=== PATIENT | male | born 1960 | race Caucasian/White ===

== ENCOUNTER 2017-02-05 10:31 | Emergency (ER) | payer OTHER ==
[2017-02-05] MEDS ORDERED: KETOROLAC 60 MG/2 ML VIAL IM STA (11:01)
[2017-02-05] MEDS ORDERED: KETOROLAC 60 MG/2 ML VIAL ONE (11:06)
--- NOTE | 2017-02-05 11:11 | ED Physician Documentation ---
History of Present Illness - Stated complaint Stated Complaint: LT FOOT PX - Chief complaint Chief Complaint: Ext Problem - Additonal information Additional information: hx from pt 56 male hx gout pain redness swelling to 2st MCP L foot otherwise well Review of Systems Constitutional: denies: Fever Cardiac: denies: Chest pain / pressure Respiratory: denies: Dyspnea Musculoskeletal: reports: Pain with weight bearing PD PAST MEDICAL HISTORY - Past Medical History Past Medical History: Yes Cardiovascular: Hypertension GI: GERD Musculoskeletal: Osteoarthritis - Past Surgical History Past Surgical History: Yes General: Appendectomy - Present Medications Home Medications: Ambulatory Orders Medication Instructions Recorded Confirmed Allopurinol 100 mg PO DAILY #14 tablet 02/05/17 Esomeprazole Magnesium [Nexium] 5 mg PO DAILY 02/05/17 02/05/17 Indomethacin [Indocin] 25 mg PO TIDWM PRN #30 capsule 02/05/17 - Allergies Allergies/Adverse Reactions: Allergies Allergy/AdvReac Type Severity Reaction Status Date / Time Sulfa (Sulfonamide Allergy Hives Verified 05/23/14 13:27 Antibiotics) venom-wasp [Wasp Venom] Allergy swelling Verified 05/23/14 13:27 - Social History Does the pt smoke?: No Smoking Status: Never smoker Does the pt drink ETOH?: No Does the pt have substance abuse?: No - Immunizations Immunizations are current?: No Immunizations: TDAP >10years/unknown PD ED PE NORMAL - Vitals Vital signs reviewed: Yes - Cardiac Cardiac: RRR - Respiratory Respiratory: No respiratory distress, Clear bilaterally - Extremities Extremities: Other (L foot erthema and swellign primarily around 1st MCP with some extension across other MCPs but no proximal streaking, MSV intact, no open wounds) Results - Vitals Vitals: Vital Signs - 24 hr 02/05/17 10:34 Temperature 36.7 C Heart Rate 88 Respiratory 18 Rate Blood Pressure 153/93 H O2 Saturation 100 Oxygen O2 Source Room air - Labs Labs: Laboratory Tests 02/05/17 11:30 Sodium 137 Potassium 4.0 Chloride 102 Carbon Dioxide 27 Anion Gap 8.0 BUN 19 Creatinine 1.3 H Estimated GFR (MDRD) 57 L Glucose 99 Uric Acid 7.3 H Calcium 9.7 Total Bilirubin 1.0 AST 21 ALT 26 Alkaline Phosphatase 69 Total Protein 8.1 Albumin 4.3 Globulin 3.8 Albumin/Globulin Ratio 1.1 Lipase 28 Departure - Departure Disposition: 01 Home, Self Care Clinical Impression: Gout attack Qualifiers: Gout site: foot Gout etiology: unspecified cause Laterality: left Qualified Code(s): M10.9 - Gout, unspecified Condition: Good Instructions: ED Arthritis Gout Follow-Up: Helio Cole MD [Primary Care Provider] - Prescriptions: Allopurinol 100 mg PO DAILY #14 tablet Indomethacin [Indocin] 25 mg PO TIDWM PRN #30 capsule PRN Reason: take with food Comments: Please follow up with your PMD about your blood pressure - it was high today Your uric acid level is high as expected with gout Your kidney function is the same as 2015 - the creatinine is slightly high at 1.3 - so it is important to be careful about what medications you take to be sure the kidney function does not worsen - I wrote for a low dose of indocin for the gout pain and you should stop that as soon as the pain subsides - and I also wrote for a low dose of allopurinol which decreases your uric acid - you need to see your PMD in about 2 weeks to get your kidney function rechecked and determine if it is safe for you to continue the allopurinol
[2017-02-05 11:54] LABS: ALBUMIN/GLOBULIN RATIO 1.1 (1.0-2.2); CALCIUM 9.7 mg/dL (8.5-10.3); CREATININE 1.3 mg/dL (0.6-1.2); TOTAL PROTEIN 8.1 g/dL (6.7-8.2); URIC ACID 7.3 mg/dL (2.6-7.2)
[2017-02-05 13:00] VITALS: BP 128/78
== END 2017-02-05 12:59 | disposition home or self-care (01) ==
LOC: ED 10:31
DX: M10.9 Gout, unspecified (principal); I10 Essential (primary) hypertension; K21.9 Gastro-esophageal reflux disease without esophagitis; M19.90 Unspecified osteoarthritis, unspecified site
CPT/HCPCS: 36415; 80053; 83690; 84550; 96372; 99283

== ENCOUNTER 2018-09-27 16:02 | Emergency (ER) | payer OTHER ==
[2018-09-27] MEDS ORDERED: NAPROXEN 250 MG TABLET PO STA (17:15)
[2018-09-27] MEDS ORDERED: predniSONE 20 MG TABLET PO STA (17:15)
--- NOTE | 2018-09-27 17:18 | ED Physician Documentation ---
PD HPI LOWER EXT INJURY - Stated complaint Stated Complaint: LEFT FOOT PX - Chief complaint Chief Complaint: Ext Problem - History obtained from History obtained from: Patient - History of Present Illness PD HPI LOW EXT INJURY LOCATION: Right, Toe Timing - onset: How many days ago (1) Timing - details: Gradual onset Severity Comments: moderate Improved by: Rest Worsened by: Moving, Palpating Associated symptoms: Swelling Contributing factors: No: Anticoagulated Similar symptoms before: Other (Pain that the patient is experiencing in his right great toe is similar to prior episodes of gout.) Recently seen: Not recently seen Review of Systems Constitutional: denies: Fever, Chills Nose: denies: Congestion Cardiac: denies: Chest pain / pressure Respiratory: denies: Cough Skin: denies: Rash, Laceration (s) Musculoskeletal: reports: Extremity pain, Joint pain Neurologic: denies: Generalized weakness, Numbness PD PAST MEDICAL HISTORY - Past Medical History Past Medical History: Yes Cardiovascular: Hypertension Respiratory: None Neuro: None Endocrine/Autoimmune: None GI: GERD : None HEENT: None Psych: None Musculoskeletal: Osteoarthritis, Gout Derm: None - Past Surgical History Past Surgical History: Yes General: Appendectomy - Present Medications Home Medications: Ambulatory Orders Medication Instructions Recorded Confirmed Naproxen 500 mg PO BID PRN #60 tablet 09/27/18 predniSONE [Prednisone] 60 mg PO DAILY #12 tablet 09/27/18 - Allergies Allergies/Adverse Reactions: Allergies Allergy/AdvReac Type Severity Reaction Status Date / Time Sulfa (Sulfonamide Allergy Hives Verified 05/23/14 13:27 Antibiotics) venom-wasp [Wasp Venom] Allergy swelling Verified 09/27/18 16:22 - Social History Does the pt smoke?: No Smoking Status: Never smoker Does the pt drink ETOH?: No Does the pt have substance abuse?: No - Immunizations Immunizations are current?: Yes Immunizations: TDAP current <10years - POLST Patient has POLST: No PD ED PE NORMAL - General General: Alert and oriented X 3, No acute distress - HEENT HEENT: Atraumatic, PERRL, EOMI, Ears normal - Neuro Neuro: Alert and oriented X 3, Normal speech - Psych Psych: Normal affect PD ED PE EXPANDED - Extremities Feet visual: 1 - swelling, tenderness (The patient has some slight tenderness and erythematous changes. The patient has full active range of motion of the joints. There is no crepitus. There is a normal dorsalis pedis pulse.) Results - Vitals Vitals: Vital Signs - 24 hr 09/27/18 16:21 Temperature 36.4 C L Heart Rate 82 Respiratory 20 Rate Blood Pressure 169/121 H O2 Saturation 97 Oxygen O2 Source Room air PD MEDICAL DECISION MAKING - ED course ED course: The patient's symptoms are consistent with his prior episodes of gout, there is no significant findings that would suggest a septic arthritis at this point. The patient will be treated as an outpatient for a gout flareup. I discussed warning signs and recommended returning to the emergency department for any worsening or any concerns. Departure - Departure Disposition: Home, Self Care Clinical Impression: Great toe pain Qualifiers: Laterality: unspecified laterality Qualified Code(s): M79.676 - Pain in unspecified toe(s) Condition: Good Instructions: Gout Attack Tx, ED Arthritis Gout Follow-Up: [facility] [Provider Group] - As Needed (Call to schedule an a ppointment ) Prescriptions: Naproxen 500 mg PO BID PRN #60 tablet PRN Reason: Pain predniSONE [Prednisone] 60 mg PO DAILY #12 tablet Comments: Please return to the emergency department for worsening symptoms or any concerns Forms: Activity restrictions
[2018-09-27 17:20] VITALS: BP 155/109
== END 2018-09-27 17:24 | disposition home or self-care (01) ==
LOC: ED 16:02
DX: M79.674 Pain in right toe(s) (principal); M10.9 Gout, unspecified; I10 Essential (primary) hypertension
CPT/HCPCS: 99283; J7512

== ENCOUNTER 2019-01-15 09:46 | Outpatient (CLI) | payer OTHER ==
[2019-01-15 13:06] LABS: BASOPHILS % (AUTO) 0.8 %; EOSINOPHILS # (AUTO) 0.1 10^3/uL (0.0-0.7); EOSINOPHILS % (AUTO) 1.8 %; HGB - HEMOGLOBIN 13.6 g/dL (14.0-18.0); LYMPHOCYTES # (AUTO) 1.6 10^3/uL (1.5-3.5); LYMPHOCYTES % (AUTO) 28.1 %; MEAN CORPUSCULAR HEMOGLOBIN 29.6 pg (27.0-31.0); MEAN CORPUSCULAR HGB CONC 33.5 g/dL (32.0-36.0); MEAN CORPUSCULAR VOLUME 88.5 fL (80.0-94.0); MEAN PLATELET VOLUME 9.6 fL (7.4-11.4); MONOCYTES # (AUTO) 0.4 10^3/uL (0.0-1.0); MONOCYTES % (AUTO) 7.7 %; NEUTROPHILS # (AUTO) 3.6 10^3/uL (1.5-6.6); NEUTROPHILS % (AUTO) 61.6 %; PLT - PLATELET COUNT 240 10^3/uL (130-450); RED BLOOD COUNT 4.59 10^6/uL (4.70-6.10); RED CELL DISTRIBUTION WIDTH 13.8 % (12.0-15.0); WHITE BLOOD COUNT 5.8 x10^3/uL (4.8-10.8)
[2019-01-15 13:24] LABS: HB2 TOTAL 14.2 g/dL; HEMOGLOBIN A1C 0.52 g/dL; HEMOGLOBIN A1C % 5.5 % (4.6-6.2)
[2019-01-15 13:44] LABS: ALBUMIN 4.1 g/dL (3.2-5.5); ALBUMIN/GLOBULIN RATIO 1.2 (1.0-2.2); ALKALINE PHOSPHATASE 54 IU/L (42-121); ALT ALANINE AMINOTRANSFERASE 34 IU/L (10-60); AST ASPARTATE AMINOTRANSFERASE 31 IU/L (10-42); BILIRUBIN,TOTAL 0.8 mg/dL (0.2-1.0); BUN - BLOOD UREA NITROGEN 23 mg/dL (6-20); CALCIUM 9.4 mg/dL (8.5-10.3); CARBON DIOXIDE - CO2 24 mmol/L (21-32); CHLORIDE 106 mmol/L (101-111); CHOL/HDL RATIO 3.5 (<5.0); CHOLESTEROL 212 mg/dL; CREATININE 1.3 mg/dL (0.6-1.2); GFR - MDRD 57 (>89); GLUCOSE 91 mg/dL (70-100); HDL CHOLESTEROL 61 mg/dL; LDL CHOLESTEROL,CALCULATED 141 mg/dL; LDL/HDL RATIO 2.3 (<3.6); SODIUM 137 mmol/L (135-145); TOTAL PROTEIN 7.6 g/dL (6.7-8.2); URIC ACID 7.8 mg/dL (2.6-7.2); VLDL CHOLESTEROL 10 mg/dL
== END 2019-01-15 09:47 | disposition home or self-care (01) ==
LOC: LAB.WCP 09:46
PROVIDERS: ATTEND Physician Assistant
DX: I10 Essential (primary) hypertension (principal); E78.9 Disorder of lipoprotein metabolism, unspecified; Z00.00 Encounter for general adult medical examination without abnormal findings; Z12.5 Encounter for screening for malignant neoplasm of prostate; M10.9 Gout, unspecified
CPT/HCPCS: 36415; 80050; 80061; 83036; 83721; 84153; 84550

== ENCOUNTER 2020-08-22 12:38 | Outpatient (CLI) | payer OTHER ==
--- NOTE | 2020-08-22 15:20 | XRAY Report ---
PROCEDURE: Chest 2 View X-Ray INDICATIONS: COVID-19, ACUTE BRONCHITIS TECHNIQUE: 2 view(s) of the chest. COMPARISON: None. FINDINGS: Surgical changes and devices: None. Lungs and pleura: No pleural effusions or pneumothorax. Lungs are clear. Mediastinum: Mediastinal contours are normal. Heart size is normal. Bones and chest wall: No suspicious bony abnormalities. Soft tissues appear unremarkable. IMPRESSION: No acute cardiopulmonary process demonstrated radiographically. Reviewed by: Jose Mcknight MD on 08/22/2020 2:19 PM [facility] Approved by: Jose Mcknight MD on 08/22/2020 2:19 PM [facility] Station ID: [id number]
== END 2020-08-22 23:59 | disposition home or self-care (01) ==
LOC: DI.N 12:38
PROVIDERS: ATTEND Physician Assistant Medical
DX: U07.1 COVID-19 (principal)

== ENCOUNTER 2020-10-19 08:00 | Outpatient (CLI) | payer OTHER ==
[2020-10-19 18:22] LABS: BASOPHILS % (AUTO) 0.2 %; EOSINOPHILS # (AUTO) 0.2 10^3/uL (0.0-0.7); HGB - HEMOGLOBIN 13.9 g/dL (14.0-18.0); LYMPHOCYTES # (AUTO) 1.5 10^3/uL (1.5-3.5); LYMPHOCYTES % (AUTO) 28.2 %; MEAN CORPUSCULAR HEMOGLOBIN 29.5 pg (27.0-31.0); MEAN CORPUSCULAR HGB CONC 32.5 g/dL (32.0-36.0); MEAN CORPUSCULAR VOLUME 90.9 fL (80.0-94.0); MONOCYTES # (AUTO) 0.5 10^3/uL (0.0-1.0); NEUTROPHILS # (AUTO) 3.2 10^3/uL (1.5-6.6); NEUTROPHILS % (AUTO) 58.6 %; PLT - PLATELET COUNT 260 10^3/uL (130-450); RED BLOOD COUNT 4.71 10^6/uL (4.70-6.10); RED CELL DISTRIBUTION WIDTH 13.9 % (12.0-15.0); WHITE BLOOD COUNT 5.4 x10^3/uL (4.8-10.8)
[2020-10-19 18:35] LABS: ALKALINE PHOSPHATASE 75 IU/L (42-121); ALT ALANINE AMINOTRANSFERASE 28 IU/L (10-60); CALCIUM 9.3 mg/dL (8.5-10.3); CARBON DIOXIDE - CO2 26 mmol/L (21-32); CHLORIDE 102 mmol/L (101-111); CHOLESTEROL 223 mg/dL; GLUCOSE 102 mg/dL (70-100)
[2020-10-19 19:00] LABS: FOLATE 23.97 ng/mL (5.90 - >24.8)
[2020-10-19 19:54] LABS: % IRON SATURATION 33 % (20-50); ALBUMIN 4.5 g/dL (3.2-5.5); ALBUMIN/GLOBULIN RATIO 1.3 (1.0-2.2); AST ASPARTATE AMINOTRANSFERASE 24 IU/L (10-42); BILIRUBIN,TOTAL 0.9 mg/dL (0.2-1.0); BUN - BLOOD UREA NITROGEN 20 mg/dL (6-20); CHOL/HDL RATIO 4.4 (<5.0); CREATININE 1.4 mg/dL (0.6-1.2); HDL CHOLESTEROL 51 mg/dL; IRON 108 ug/dL (45-182); LDL CHOLESTEROL,CALCULATED 153 mg/dL; TOTAL IRON BINDING CAPACITY 332 ug/dL (250-450); TOTAL PROTEIN 8.1 g/dL (6.7-8.2); TRANSFERRIN 237 mg/dL (180-329); VLDL CHOLESTEROL 19 mg/dL
== END 2020-10-19 23:59 | disposition home or self-care (01) ==
LOC: LAB.WCP 08:00
PROVIDERS: ATTEND Physician Assistant Medical
DX: I10 Essential (primary) hypertension (principal); D64.9 Anemia, unspecified; Z12.5 Encounter for screening for malignant neoplasm of prostate; E78.5 Hyperlipidemia, unspecified
CPT/HCPCS: 36415; 80050; 80061; 82607; 82728; 82746; 83540; 83721; 84153; 84466

== ENCOUNTER 2021-06-19 12:20 | Outpatient (CLI) | payer OTHER | END 2021-06-19 23:59 | LOC: LAB.N 12:20 | PROVIDERS: ATTEND Family Medicine | DX: R05.9 Cough, unspecified (principal); Z20.822 Contact with and (suspected) exposure to COVID-19 ==

== ENCOUNTER 2023-05-06 08:45 | Outpatient (CLI) | payer BC, OTHER ==
[2023-05-06 12:59] LABS: BASOPHILS % (AUTO) 0.2 %; EOSINOPHILS # (AUTO) 0.2 10^3/uL (0.0-0.7); EOSINOPHILS % (AUTO) 2.8 %; HCT - HEMATOCRIT 43.5 % (42.0-52.0); LYMPHOCYTES # (AUTO) 1.3 10^3/uL (1.5-3.5); LYMPHOCYTES % (AUTO) 24.4 %; MEAN CORPUSCULAR HEMOGLOBIN 28.7 pg (27.0-31.0); MEAN CORPUSCULAR HGB CONC 32.2 g/dL (32.0-36.0); MEAN CORPUSCULAR VOLUME 89.1 fL (80.0-94.0); MEAN PLATELET VOLUME 11.6 fL (7.4-11.4); MONOCYTES # (AUTO) 0.5 10^3/uL (0.0-1.0); MONOCYTES % (AUTO) 8.5 %; NEUTROPHILS # (AUTO) 3.5 10^3/uL (1.5-6.6); NEUTROPHILS % (AUTO) 63.7 %; PLT - PLATELET COUNT 274 10^3/uL (130-450); RED BLOOD COUNT 4.88 10^6/uL (4.70-6.10); RED CELL DISTRIBUTION WIDTH 13.8 % (12.0-15.0); WHITE BLOOD COUNT 5.4 x10^3/uL (4.8-10.8)
[2023-05-06 13:28] LABS: THYROID STIMULATING HORMONE 2.61 uIU/mL (0.34-5.60)
[2023-05-06 13:37] LABS: ALBUMIN 4.4 g/dL (3.2-5.5); ALBUMIN/GLOBULIN RATIO 1.3 (1.0-2.2); ALKALINE PHOSPHATASE 80 IU/L (42-121); ALT ALANINE AMINOTRANSFERASE 19 IU/L (10-60); AST ASPARTATE AMINOTRANSFERASE 16 IU/L (10-42); BILIRUBIN,TOTAL 0.6 mg/dL (0.2-1.0); BUN - BLOOD UREA NITROGEN 17 mg/dL (6-20); CALCIUM 9.7 mg/dL (8.5-10.3); CARBON DIOXIDE - CO2 28 mmol/L (21-32); CHLORIDE 107 mmol/L (101-111); CHOL/HDL RATIO 4.4 (<5.0); CHOLESTEROL 213 mg/dL; CREATININE 1.6 mg/dL (0.6-1.3); GFR - MDRD 44 (>89); GLUCOSE 100 mg/dL (74-104); HDL CHOLESTEROL 48 mg/dL; LDL CHOLESTEROL,CALCULATED 149 mg/dL; LDL/HDL RATIO 3.1 (<3.6); POTASSIUM 4.2 mmol/L (3.5-4.5); SODIUM 140 mmol/L (135-145); TOTAL PROTEIN 7.8 g/dL (6.4-8.9); TRIGLYCERIDES 81 mg/dL (48-352); VLDL CHOLESTEROL 16 mg/dL
== END 2023-05-06 08:46 | disposition home or self-care (01) ==
LOC: LAB.N 08:45
PROVIDERS: ATTEND Family Medicine
DX: E78.5 Hyperlipidemia, unspecified (principal); I10 Essential (primary) hypertension; Z12.5 Encounter for screening for malignant neoplasm of prostate
CPT/HCPCS: 36415; 80053; 80061; 83721; 84153; 84443; 85025

== ENCOUNTER 2024-04-13 10:24 | Observation (INO) | payer BC, OTHER ==
--- NOTE | 2024-04-13 11:03 | ED Physician Documentation ---
PD HPI CHEST PAIN - Stated complaint Stated Complaint: SOA WEAK - Chief complaint Chief Complaint: Resp - Additional information Additional information: 63-year-old male with history of hypertension, GERD, osteoarthritis, gout, left knee arthroplasty. Patient says February 17 of this year he had his left knee replaced he had his labs drawn prior to surgery and said that there was no significant acute abnormalities. Overall he says he has been recovering well from surgery he said that he started taking 81 mg of aspirin twice a day per recommendations of surgeons and has been able to participate in all PT and has been overall feeling well. Yesterday he started to notice significant weakness and dizziness after he was lifting something heavy to the point where he had a near syncopal episode. He went inside and checked his blood pressure and it was found to be 80/60 with a heart rate of 104. He continued to feel weak with generalized malaise today and decided to come to the emergency department for further evaluation. He said that he has been having dark bowel movements but he says he thinks that they are mostly brown no hematemesis no nausea or vomiting no abdominal pain. PD PAST MEDICAL HISTORY - Past Medical History Cardiovascular: Hypertension Respiratory: None Neuro: None Endocrine/Autoimmune: None GI: GERD : None HEENT: None Psych: None Musculoskeletal: Osteoarthritis, Gout Derm: None - Past Surgical History Past Surgical History: Yes General: Appendectomy Ortho: Knee replacement - Present Medications Home Medications: Ambulatory Orders Medication Instructions Recorded Confirmed Aspirin [Yodit] 162.5 mg PO DAILY 04/13/24 04/13/24 Ibuprofen 200 mg PO DAILY 04/13/24 04/13/24 Multivitamin,Therapeutic 1 each PO DAILY 04/13/24 04/13/24 [Thera-Tabs] amLODIPine [Norvasc] 1 tab PO HS 04/13/24 04/13/24 - Allergies Allergies/Adverse Reactions: Allergies Allergy/AdvReac Type Severity Reaction Status Date / Time Sulfa (Sulfonamide Allergy Hives Verified 04/13/24 10:30 Antibiotics) venom-wasp [Wasp Venom] Allergy swelling Verified 04/13/24 10:30 oxycodone AdvReac Emesis Verified 04/13/24 16:10 - Social History Does the pt smoke?: No Smoking Status: Never smoker Does the pt drink ETOH?: No Does the pt have substance abuse?: No - Immunizations Immunizations are current?: Yes Immunizations: TDAP current <10years - POLST Patient has POLST: No PD ED PE NORMAL - Vitals Vital signs reviewed: Yes - General General: Alert and oriented X 3, No acute distress, Well developed/nourished - HEENT HEENT: Atraumatic, PERRL - Cardiac Cardiac: RRR, No murmur, Strong equal pulses - Respiratory Respiratory: No respiratory distress, Clear bilaterally - Abdomen Abdomen: Normal bowel sounds, Soft, Non tender, No organomegaly - Derm Derm: Other (very pale) - Extremities Extremities: Other (left knee arthoplasty scar healing well) - Psych Psych: Normal mood, Normal affect Results - Vitals Vitals: Vital Signs - 24 hr 04/13/24 04/13/24 04/13/24 10:30 13:32 13:34 Temperature 36.8 C 37.2 C 37.2 C Heart Rate 100 Heart Rate [ 93 93 Monitoring electrodes] Respiratory 26 H 15 15 Rate Blood Pressure 148/62 H Blood Pressure 153/91 H 153/91 H [Left Brachial artery] O2 Saturation 100 100 100 04/13/24 04/13/24 04/13/24 13:50 14:25 15:12 Temperature 37.1 C 36.7 C Heart Rate 93 89 Heart Rate [ 88 Monitoring electrodes] Respiratory 18 18 23 Rate Blood Pressure 142/84 H 166/95 H Blood Pressure 142/82 H [Left Brachial artery] O2 Saturation 100 100 100 Oxygen O2 Source Room air - Labs Labs: Microbiology 04/13/24 11:55 Occult Blood - Final Stool Laboratory Tests 04/13/24 04/13/24 04/13/24 10:54 10:54 10:54 WBC 7.8 RBC 1.82 L Hgb 5.2 L* Hct 16.9 L* MCV 92.9 MCH 28.6 MCHC 30.8 L RDW 14.4 Plt Count 268 MPV 10.0 Neut # (Auto) 5.2 Lymph # (Auto) 1.8 [place] # (Auto) 0.7 Eos # (Auto) 0.1 Baso # (Auto) 0.0 Absolute Nucleated RBC 0.00 Nucleated RBC % 0.0 PT INR Sodium 139 Potassium 3.5 Chloride 108 Carbon Dioxide 24 Anion Gap 7.0 BUN 61 H Creatinine 1.6 H Estimated GFR (MDRD) 44 L Glucose 105 H Calcium 8.8 Total Bilirubin 0.2 AST 11 ALT 12 Alkaline Phosphatase 59 Troponin I High Sens 14.3 B-Natriuretic Peptide 26 Total Protein 5.9 L Albumin 3.6 Globulin 2.3 Albumin/Globulin Ratio 1.6 Lipase 24 Blood Type Blood Type Recheck Antibody Screen Crossmatch IS Only 04/13/24 04/13/24 04/13/24 11:01 12:05 12:06 WBC RBC Hgb Hct MCV MCH MCHC RDW Plt Count MPV Neut # (Auto) Lymph # (Auto) [place] # (Auto) Eos # (Auto) Baso # (Auto) Absolute Nucleated RBC Nucleated RBC % PT 14.5 H INR 1.4 H Sodium Potassium Chloride Carbon Dioxide Anion Gap BUN Creatinine Estimated GFR (MDRD) Glucose Calcium Total Bilirubin AST ALT Alkaline Phosphatase Troponin I High Sens B-Natriuretic Peptide Total Protein Albumin Globulin Albumin/Globulin Ratio Lipase Blood Type O POSITIVE Blood Type Recheck O POSITIVE Antibody Screen NEGATIVE Crossmatch IS Only See Detail - Rads (name of study) Chest x-ray Relevant Findings:: Final report received, EMP independent interpretation of test, Other (Limited single view chest x-ray with low lung volumes) Abdomen pelvis CT with Relevant Findings:: Final report received, EMP independent interpretation of test, Other (Left renal mass measuring 5.4 cm concerning for renal cell carcinoma no invasion of the renal vein no retroperitoneal adenopathy) PD Medical Decision Making - ED course ED course: 63-year-old male presents emergency department for profound and significant weakness. He said he had episode of hypotension at home here blood pressure has been systolic in the 130s to 140s heart rate has been in the 100s to high 90s. He did have a bowel movement here in the emergency department and it was very firm and it did appear to be quite dark almost black. He denies any abdominal pain but went ahead and pursued abdominal pelvis CT as he had a very low hemoglobin and hematocrit. Hemoglobin 5.2 hematocrit 16.9. His GFR was also found to be low at 44, creatinine slightly elevated at 1.6 and BUN significantly elevated at 61. Patient says he believes he does have chronic kidney disease but his last GFR was found to be in the high 50s so this is a significant drop. Patient was agreeable to receive 2 units of RBCs consent was complete. His stool for guaiac study was found to be positive and patient did have very dark black bowel movement. I spoke with Dr. Azar who has agreed to consult on the patient while they are admitted. They will decide as the patient's H&H is trended if he will need an inpatient colonoscopy endoscopy. Patient was informed of this renal mass. I spoke with Dr. Alvarado who graciously agrees to admit the patient for trending of hemoglobin and hematocrit and patient is agreeable to stay. Departure - Departure Disposition: ED Place in Observation Clinical Impression: Anemia, Kidney mass, Blood transfusion during current hospitalisation, Guaiac positive stools, GI bleed Discharge Date/Time: 04/13/24 16:25
[2024-04-13 11:06] LABS: BASOPHILS % (AUTO) 0.1 %; EOSINOPHILS # (AUTO) 0.1 10^3/uL (0.0-0.7); LYMPHOCYTES # (AUTO) 1.8 10^3/uL (1.5-3.5); LYMPHOCYTES % (AUTO) 22.8 %; MEAN CORPUSCULAR HEMOGLOBIN 28.6 pg (27.0-31.0); MEAN CORPUSCULAR HGB CONC 30.8 g/dL (32.0-36.0); MEAN CORPUSCULAR VOLUME 92.9 fL (80.0-94.0); MONOCYTES # (AUTO) 0.7 10^3/uL (0.0-1.0); MONOCYTES % (AUTO) 8.4 %; NEUTROPHILS # (AUTO) 5.2 10^3/uL (1.5-6.6); NEUTROPHILS % (AUTO) 67.3 %; PLT - PLATELET COUNT 268 10^3/uL (130-450); RED BLOOD COUNT 1.82 10^6/uL (4.70-6.10); RED CELL DISTRIBUTION WIDTH 14.4 % (12.0-15.0); WHITE BLOOD COUNT 7.8 x10^3/uL (4.8-10.8)
[2024-04-13 11:09] LABS: HCT - HEMATOCRIT 16.9 % (42.0-52.0); HGB - HEMOGLOBIN 5.2 g/dL (14.0-18.0)
[2024-04-13] MEDS ORDERED: iohexoL-300 100 ML VIAL ONE (11:24)
[2024-04-13 11:25] LABS: ALBUMIN 3.6 g/dL (3.2-5.5); ALBUMIN/GLOBULIN RATIO 1.6 (1.0-2.2); BILIRUBIN,TOTAL 0.2 mg/dL (0.2-1.0); CALCIUM 8.8 mg/dL (8.5-10.3); CREATININE 1.6 mg/dL (0.6-1.3); POTASSIUM 3.5 mmol/L (3.5-4.5); TOTAL PROTEIN 5.9 g/dL (6.4-8.9)
[2024-04-13 11:27] LABS: TROPONIN I HIGH SENSITIVITY 14.3 ng/L (2.3-19.7)
--- NOTE | 2024-04-13 11:51 | XRAY Report ---
PROCEDURE: Chest 1V INDICATIONS: Chest pain TECHNIQUE: One view of the chest was acquired. COMPARISON: 08/22/2020 FINDINGS: Surgical changes and devices: None. Lungs and pleura: No dense consolidation or pleural effusion. Low lung volumes. Mediastinum: Unchanged cardiac mediastinal contours. The right hilum is prominent, likely present on prior imaging as well, indeterminate however on radiography Bones and chest wall: Degenerative changes IMPRESSION: Limited single view portable study with low lung volumes. No acute abnormality/changes. Similar prominence of the right hilum, indeterminate on radiography. Reviewed by: Rigoberto Soto MD on 04/13/2024 11:50 AM PDT Approved by: Rigoberto Soto MD on 04/13/2024 11:50 AM PDT Station ID: [id number]
--- NOTE | 2024-04-13 13:10 | CT Report ---
PROCEDURE: Abdomen/Pelvis W INDICATIONS: weakness, low H/H, dark BMs CONTRAST: Omni 300 100ml TECHNIQUE: After the administration of intravenous contrast, a CT scan of the abdomen and pelvis was performed. Images were recorded and evaluated at appropriate window settings. Reformats: coronal and sagittal. F or radiation dose reduction, the following was used: automated exposure control, adjustment of mA and /or kV according to patient size. COMPARISON: None. FINDINGS: Image quality: Diagnostic. Lower chest: Unremarkable. Liver: No solid mass. Gallbladder: No radiopaque stones or wall thickening. Biliary tree: No intrahepatic or extrahepatic dilation, accounting for age. Spleen: No splenomegaly. Pancreas: No pancreatic ductal dilation. Adrenals: No adrenal nodule. Kidneys and ureters: No hydronephrosis. No renal cystic lesion which requires follow up. Partially ex ophytic solid mass with central necrosis along the lateral margin of the left kidney measuring 5.4 x 4.9 x 4.4 cm. Renal vein is widely patent. No retroperitoneal adenopathy. Stomach, bowel and peritoneum: No gastric or small bowel dilation. No abnormal wall thickening. No pa thologic free fluid. No significant diverticular disease. No obstructing mass. Lymph nodes: No central or retroperitoneal adenopathy. Vessels: Infrarenal aortic aneurysm measuring 4.2 cm. Patent portal vein. PELVIS Reproductive organs: Unremarkable. Bladder: No abnormal wall thickening, accounting for underdistention. Pelvic lymph nodes: No pelvic adenopathy by size criteria. Bones: No aggressive osseous abnormality. Degenerative changes of the spine. Other: No significant ventral or inguinal hernia. IMPRESSION: No findings to explain the patient's anemia or dark bowel movements. Consider diagnostic colonoscopy given the symptoms. Left renal mass measuring 5.4 cm, concerning for renal cell carcinoma. No invasion of the renal vein. No retroperitoneal adenopathy. Reviewed by: Emile Fuentes MD on 04/13/2024 1:08 PM PDT Approved by: Emile Fuentes MD on 04/13/2024 1:08 PM PDT Station ID: [id number]
[2024-04-13] MEDS: iohexoL-300 100 ML VIAL IVP ONE (14:18)
[2024-04-13 14:55] LABS: INR 1.4 (0.8-1.2); PT - PROTHROMBIN TIME 14.5 secs (9.9-12.6)
[2024-04-13] MEDS ORDERED: oxyCODONE 5 MG TABLET PO PRN (15:21)
[2024-04-13] MEDS ORDERED: ONDANSETRON 4 MG/2 ML VIAL IVP PRN (15:21)
[2024-04-13] MEDS ORDERED: ONDANSETRON ODT 4 MG TABLET TL PRN (15:21)
[2024-04-13] MEDS ORDERED: ACETAMINOPHEN 325 MG TABLET PO PRN (15:21)
--- NOTE | 2024-04-13 15:24 | CONSULTATION NOTE ---
Referring Provider Name of Referring Provider:: ED (Roz) Consult Date: 04/13/24 Chief Complaint - Chief Complaint Chief Complaint: anemia and guiac positive stools History of Present Illness - Admitted From Admitted From:: ED - History Obtained From Records Reviewed: yes History obtained from: ED provider, patient, at bedside Exam Limitations: patient is poor historian - History of Present Illness HPI Comment/Other: Patient underwent left total knee replacement on 02/18/24, and now presents with two day history of fatigue and malaise. He felt weak and dizzy after heavy lifting yesterday. He is taking ibuprofen and BID aspirin. He did feel some h eartburn yesterday which he treated with baking soda and water. He is not on a PPI or H2 richar. He has a history of GERD and Yee's esophagus and reports prior ablation of his esophagus for Yee's. He reports his most recent endoscopy was in 2012 and that he was told he doesn't need further endoscopy. At the time of my visit, the patient denies any abdominal pain, n/v, c/d. He denies blood or melanotic stools but the ED provider reported hard, black stool at the time of rectal exam. History - Past Medical History Cardiovascular: reports: Hypertension Respiratory: reports: None Neuro: reports: None Endocrine/Autoimmune: reports: None GI: reports: GERD, Other (Yee's esophagus). denies: GI bleed, Ulcers : reports: None HEENT: reports: None Psych: reports: None Musculoskeletal: reports: Osteoarthritis, Gout Derm: reports: None MRSA Hx?: No - Past Surgical History General: reports: Appendectomy Ortho: reports: Knee replacement (L) - Family & Social History Living arrangement: At home Living Situation: With spouse/s.o. - POLST Patient has POLST: No Meds/Allgy - Home Medications Home Medications: Ambulatory Orders Medication Instructions Recorded Confirmed Aspirin [Kaylor Aspirin] 2 tab PO DAILY 04/13/24 04/13/24 Ibuprofen [Motrin] 1 tab PO DAILY 04/13/24 04/13/24 amLODIPine [Norvasc] 1 tab PO DAILY 04/13/24 04/13/24 - Allergies Allergies/Adverse Reactions: Allergies Allergy/AdvReac Type Severity Reaction Status Date / Time Sulfa (Sulfonamide Allergy Hives Verified 04/13/24 10:30 Antibiotics) venom-wasp [Wasp Venom] Allergy swelling Verified 04/13/24 10:30 oxycodone AdvReac Emesis Verified 04/13/24 16:10 Review of Systems - Constitutional Constitutional: reports: Other (A complete 10 point review of symptoms is otherwise negative except for that noted in HPI and PMH.) Exam - Vital Signs Vital Signs: Vital Signs x48h Temp Pulse Pulse Resp BP BP Pulse Ox 04/13/24 15:12 89 23 166/95 H 100 04/13/24 14:25 36.7 C 93 18 142/84 H 100 04/13/24 13:50 37.1 C 88 18 142/82 H 100 04/13/24 13:34 37.2 C 93 15 153/91 H 100 04/13/24 13:32 37.2 C 93 15 153/91 H 100 04/13/24 10:30 36.8 C 100 26 H 148/62 H 100 - Physical Exam Comments/Other: GEN: No acute distress, appears stated age, alert and oriented HEENT: NCAT, MMM, EOMI NEURO: CN II-XII grossly intact, no obvious focal deficits CV: RRR PULM: non labored, on RA ABD: soft, obese, non tender to superficial or deep palpation, no rebound or guarding CIRCULATORY: no clubbing, cyanosis, or edema SKIN: no lesions appreciated LYMPH: no obvious lymphadenopathy MSK: 4/4 strength in all extremities PSYCH: Affect is appropriate Conclusion and Plan - Lab Results Microbiology Results 04/13/24 11:55 Stool Occult Blood - Final Laboratory Results 04/13/24 12:06: Blood Type O POSITIVE, Antibody Screen NEGATIVE, Crossmatch IS Only See Detail 04/13/24 12:05: Blood Type Recheck O POSITIVE 04/13/24 11:01: PT 14.5 H, INR 1.4 H 04/13/24 10:54: B-Natriuretic Peptide 26 04/13/24 10:54: Sodium 139, Potassium 3.5, Chloride 108, Carbon Dioxide 24, Anion Gap 7.0, BUN 61 H, Creatinine 1.6 H, Estimated GFR (MDRD) 44 L, Glucose 105 H, Calcium 8.8, Total Bilirubin 0.2, AST 11, ALT 12, Alkaline Phosphatase 59, Troponin I High Sens 14.3, Total Protein 5.9 L, Albumin 3.6, Globulin 2.3, Albumin/Globulin Ratio 1.6, Lipase 24 04/13/24 10:54: WBC 7.8, RBC 1.82 L, Hgb 5.2 L*, Hct 16.9 L*, MCV 92.9, MCH 28.6, MCHC 30.8 L, RDW 14.4, Plt Count 268, MPV 10.0, Neut # (Auto) 5.2, Lymph # (Auto) 1.8, [place] # (Auto) 0.7, Eos # (Auto) 0.1, Baso # (Auto) 0.0, Absolute Nucleated RBC 0.00, Nucleated RBC % 0.0 - Diagnostic Imaging Results Diagnostic Imaging Results: positive: Final report reviewed, Read independently Diagnostic Imaging Results Comments: L renal mass. No significant wall thickening in stomach, colon, no significant diverticular disease. - Consultation Note Consultation Note: 63 y/o M with: Anemia, concern for GI bleed - guiac positive stool - on BID ASA and NSAIDS. Recommend holding both of these medications and starting a PPI at this time (PO or IV, no drip needed). Patient should be on a PPI with h/o Yee's esophagus. - agree with transfusion of 2 units pRBC's - At this time, as the patient is hemodynamically stable, I would like to observe for signs of continued bleeding. If his hgb stabilizes with above intervention, he can f/u for outpatient endoscopy. If not, upper endoscopy would be the first step as inpatient. - Recommend clear liquid (non red) diet at this time until Hgb is stable for 12 hours, then adat to regular. Renal mass - patient will need further workup, staging, referral to urology gout, htn - as per primary team I have discussed the patient with the primary medicine team. Surgery will continue to follow closely. Thank you for consulting me in the care of this patient!
[2024-04-13] MEDS: PANTOPRAZOLE 40 MG VIAL IV STA (16:05)
--- NOTE | 2024-04-13 16:51 | PHARMACY PROGRESS NOTE ---
- Best Possible Medication History Admit Date and Time: 04/13/24 1521 Processed by: Pharmacy Medications reviewed in ED?: No Medication History completed: Yes Patient Interview: Completed Secondary Source(s): Insurance records As the person ultimately responsible for medication therapy, providers are able to order a medication from an existing home medication list in [facility] via the "Reconcile Routine" prior to Confirmation of that medication by production support specialist. Such practice is discouraged except when the physician, in their clinical judgment, deems that a medical need exists for a medication without regard to previous use.
[2024-04-13] MEDS: amLODIPine 5 MG TABLET PO STA (16:52)
--- NOTE | 2024-04-13 17:26 | HISTORY & PHYSICAL EXAMINATION ---
Chief Complaint - Chief Complaint Chief Complaint: Weakness and dyspnea on exertion with dark stool History of Present Illness - Admitted From Admitted From:: ED - History Obtained From Records Reviewed: ED, History obtained from: Patient, ED records for current and previous visit, outpatient records - History of Present Illness HPI Comment/Other: 63-year-old male with history of hypertension, GERD, osteoarthritis, gout, left knee arthroplasty presented to the ED on 04/13/24. Patient says February 17 of this year he had his left knee replaced he had his labs drawn prior to surgery and said that there was no significant acute abnormalities. Overall he says he has been recovering well from surgery he said that he started taking 81 mg of aspirin twice a day per recommendations of surgeons and has been able to participate in all PT and has been overall feeling well. Yesterday he started to notice significant weakness and dizziness after he was lifting something heavy to the point where he had a near syncopal episode. He went inside and checked his blood pressure and it was found to be 80/60 with a heart rate of 104. He continued to feel weak with generalized malaise today and decided to come to the emergency department for further evaluation. He said that he has been having dark bowel movements with a "foul smell" but he says he thinks that they are mostly brown, no hematemesis, no nausea or vomiting, no abdominal pain. History - Past Medical History Cardiovascular: reports: Hypertension Respiratory: reports: None, Sleep apnea, CPAP use (Sleep apnea) Neuro: reports: None Endocrine/Autoimmune: reports: None GI: reports: GERD, Other (Yee's esophagus with ablation). denies: GI bleed, Ulcers : reports: None, Renal insuffiency HEENT: reports: None Psych: reports: None Musculoskeletal: reports: Osteoarthritis, Gout, Other (Spinal stenosis, Left ACL tear 09/21/23, Left knee replacement 02/18/24) Derm: reports: None MRSA Hx?: No - Past Surgical History General: reports: Appendectomy, EGD (Yee's esophagus with ablation 2012) Ortho: reports: Knee replacement (L knee 02/18/24) - Family & Social History Family History: Mother: (Dad at 82 and mother at 69), Father: , Other family: Alive and Well (siblings healthy) Living arrangement: At home Living Situation: With spouse/s.o., With family - Substance History Use: Uses substance without health or social issues: NONE - POLST Patient has POLST: No POLST Status: Full Code Meds/Allgy - Home Medications Home Medications: Ambulatory Orders Medication Instructions Recorded Confirmed Aspirin [Yodit] 162.5 mg PO DAILY 04/13/24 04/13/24 Ibuprofen 200 mg PO DAILY 04/13/24 04/13/24 Multivitamin,Therapeutic 1 each PO DAILY 04/13/24 04/13/24 [Thera-Tabs] amLODIPine [Norvasc] 1 tab PO HS 04/13/24 04/13/24 - Allergies Allergies/Adverse Reactions: Allergies Allergy/AdvReac Type Severity Reaction Status Date / Time Sulfa (Sulfonamide Allergy Hives Verified 04/13/24 10:30 Antibiotics) venom-wasp [Wasp Venom] Allergy swelling Verified 04/13/24 10:30 oxycodone AdvReac Emesis Verified 04/13/24 16:10 Review of Systems - Constitutional Constitutional: reports: Fatigue. denies: Fever, Chills - Eyes Eyes: denies: Pain, Blurred vision - Ears, Nose & Throat Ears, Nose & Throat: denies: Ear pain, Nasal congestion - Cardiovascular Cariovascular: reports: Edema (LLE), Lightheadedness, Exertional dyspnea, Decr. exercise tolerance. denies: Palpitations, Chest pain - Respiratory Respiratory: reports: SOB with exertion. denies: Cough, Wheezing, SOB at rest - Gastrointestinal Gastrointestinal: reports: Black stools, Reflux/heartburn. denies: Abdominal pain, Abdominal distention, Constipation, Diarrhea, Nausea, Vomiting, Coffee grounds emesis - Genitourinary Genitourinary: denies: Dysuria, Frequency - Musculoskeletal Musculoskeletal: reports: Limited range of motion (Left knee s/p knee repla cement), Other (Surgical scar left knee, edema of the lower extremity) - Integumentary Integumentary: denies: Rash, Lesions - Neurological Neurological: denies: Focal weakness, Headache, Memory problems, Seizures - Psychiatric Psychiatric: denies: Depression, Anxiety - Endocrine Endocrine: denies: Polyuria, Polydypsia, Polyphagia - Hematologic/Lymphatic Hematologic/Lymphatic: denies: Bruising, Petechiae Prior Level of Functionality: Independent. He works at the [employer], drives, and is active. He has been using a cane during the recovery from his left knee replacement and has been off work since the surgery. Exam - Vital Signs Reviewed Vital Signs: Yes Vital Signs: Vital Signs x48h Temp Pulse Pulse Resp BP BP Pulse Ox 04/13/24 16:12 37.2 C 75 18 171/92 H 100 04/13/24 16:00 37.1 C 95 20 176/91 H 100 04/13/24 15:12 89 23 166/95 H 100 04/13/24 14:25 36.7 C 93 18 142/84 H 100 04/13/24 13:50 37.1 C 88 18 142/82 H 100 04/13/24 13:34 37.2 C 93 15 153/91 H 100 04/13/24 13:32 37.2 C 93 15 153/91 H 100 04/13/24 10:30 36.8 C 100 26 H 148/62 H 100 - Physical Exam General Appearance: positive: No acute distress, Alert, Other (63 y/o male who is interactive and pleasant, appears pale) Eyes Bilateral: positive: PERRL, EOMI, No scleral icterus. negative: No lid inflammation, Conjunctivae nml (Conjunctival pallor) ENT: positive: No signs of dehydration Neck: positive: Nml inspection, No JVD, Trachea midline Respiratory: positive: Chest non-tender, No respiratory distress, Breath sounds nml. negative: Wheezes, Rales, Rhonchi Cardiovascular: positive: Regular rate & rhythm, No murmur, No gallop. negative: Tachycardia Peripheral Pulses: positive: 2+ Abdomen: positive: Non-tender, No organomegaly, Nml bowel sounds, No distention, Tenderness. negative: Guarding, Rebound Rectal: positive: Stool - heme POS (In the ED) Back: positive: Nml inspection Skin: positive: No rash, Warm, Dry, Pallor Extremities: positive: Pedal edema (Trace pitting edema LLE, compression socks bilateral lower extremities), Other (Surgical scar L knee with mild swelling, limbs otherwise normal) Neurologic/Psychiatric: positive: Oriented x3, CN's nml (2-12), Motor nml, Sensation nml, Mood/affect nml Sepsis Event Note (H) - Evaluation Current Stage of Sepsis: Ruled out Conclusion/Plan - Problem List (1) GI bleed Conclusion/Plan: Mr. Baron presents with a one day history of fatigue, dyspnea on exertion, and light-headness with dark "foul smelling" stool. He tore his left ACL in september and was taking 1-2 ibuprofen a day until early january when he stopped as he was told it is bad for his kidneys. He had a left total knee replacement on February 17 and was placed on 600 mg ibuprofen 3-4x/day for 2-3 weeks, which he decreased to 200mg 3-4x/day and then 1-2x/day up until his ED visit. He is also on ASA 81 mg BID for DVT prophylaxis. He was found to be anemic in the ED with a Hbg of 5.2 and his stool was guiac positive. He has pale conjuntiva and palms, no complaints of abdominal pain, n/v. He is hemodynamically stable and 2 units or PRBC were ordered in the ED and he was admitted to the floor. He is recieving his second unit of blood. He has been started on protonix and will hold his home ASA. We will monitor serial hemograms. If his Hbg is stable and he is hemodynamically stable, he will be discharged for outpatient follow-up. If his homoglobin is unstable, we will transfuse again if needed and prep him for EGD and colonoscopy. Reji has already consulted on the patient and will provide the referral for outpatient EGD/colonoscpy if needed. (2) Anemia Conclusion/Plan: Acute post-hemorrhagic anemia due to GI bleed as discussed above. He has had mild anemia in the past but was not anemic at his last visit in 2022 with a hbg of 14.0. Qualifiers: Other causes of anemia: acute posthemorrhagic (3) Hypertension Conclusion/Plan: Chronic HTN, on amlodipine 5 mg PO @ HS. I will continue his home medications and monitor his blood pressure during his admission. He is currently hemodynaically stable with a last BP of 171/91 Qualifiers: Hypertension type: primary hypertension Qualified Code(s): I10 - Essential (primary) hypertension (4) Kidney mass Conclusion/Plan: Left partially exophytic encapsulated mass with central necrosis renal mass measuring 5.4 cm along the lateral border concerning for carcinoma on abdominal CT. There is no invasion of renal vein and no retroperitoneal adenopathy. This has not been previously reported and he will need to follow-up with PCP and oncology referral after discharge. (5) Chronic renal insufficiency, stage III (moderate) Conclusion/Plan: Stage 3b CKD with a GFR of 44 and creatinine of 1.6 today, unchanged from his visit on 05/06/23. He has been advised to avoid additional NSAID use and will follow with his PCP. As his renal function is stable from 1 year ago, he does not have an PARRIS related to the GI bleed. He will continue to follow with his PCP in the outpatient setting. Qualifiers: Chronic kidney disease stage 3 subtype: stage 3b (GFR 30-44) Qualified Code(s): N18.32 - Chronic kidney disease, stage 3b (6) Sleep apnea Conclusion/Plan: Hx of sleep apnea, uses CPAP at night. He will need to use a CPAP machine from [facility] during his admission. His home CPAP mask has a leak. (7) GERD (gastroesophageal reflux disease) Conclusion/Plan: Hx of GERD with previous ablation of Yee's esophagus in 2012. He states the CPAP helps prevent reflux at night. He will be on protonix during his admission. - Lab Results Lab results reviewed: Yes Fish Bones: 04/13/24 10:54 04/13/24 10:54 Other Lab Results: Laboratory Results - last 24 hr 04/13/24 04/13/24 04/13/24 10:54 10:54 10:54 WBC 7.8 RBC 1.82 L Hgb 5.2 L* Hct 16.9 L* MCV 92.9 MCH 28.6 MCHC 30.8 L RDW 14.4 Plt Count 268 MPV 10.0 Neut # (Auto) 5.2 Lymph # (Auto) 1.8 Loup # (Auto) 0.7 Eos # (Auto) 0.1 Baso # (Auto) 0.0 Absolute Nucleated RBC 0.00 Nucleated RBC % 0.0 PT INR Sodium 139 Potassium 3.5 Chloride 108 Carbon Dioxide 24 Anion Gap 7.0 BUN 61 H Creatinine 1.6 H Estimated GFR (MDRD) 44 L Glucose 105 H Calcium 8.8 Total Bilirubin 0.2 AST 11 ALT 12 Alkaline Phosphatase 59 Troponin I High Sens 14.3 B-Natriuretic Peptide 26 Total Protein 5.9 L Albumin 3.6 Globulin 2.3 Albumin/Globulin Ratio 1.6 Lipase 24 Blood Type Blood Type Recheck Antibody Screen Crossmatch IS Only 08/05/24 08/05/24 08/05/24 11:01 12:05 12:06 WBC RBC Hgb Hct MCV MCH MCHC RDW Plt Count MPV Neut # (Auto) Lymph # (Auto) Loup # (Auto) Eos # (Auto) Baso # (Auto) Absolute Nucleated RBC Nucleated RBC % PT 14.5 H INR 1.4 H Sodium Potassium Chloride Carbon Dioxide Anion Gap BUN Creatinine Estimated GFR (MDRD) Glucose Calcium Total Bilirubin AST ALT Alkaline Phosphatase Troponin I High Sens B-Natriuretic Peptide Total Protein Albumin Globulin Albumin/Globulin Ratio Lipase Blood Type O POSITIVE Blood Type Recheck O POSITIVE Antibody Screen NEGATIVE Crossmatch IS Only See Detail - Diagnostic Imaging Results Diagnostic Imaging Results: positive: Final report reviewed Diagnostic Imaging Results Comments: CT abdomen: No findings to explain anemia and dark stool. Left renal mass measuring 5.4 cm concerning for renal carcinoma, no renal artery invasion, no retroperitoneal adenopathy CXR: No acute abnormalities - EKG Results EKG Interpreted Independently: Yes EKG Comparison: Old EKG unavailable EKG Findings: Sinus rhythm, normal axis, normal R wave progression, no ST-elevation Core Measures - Anticipated LOS I expect patient to be DC'd or transferred within 96 hours.: Yes - DVT/VTE - Prophylaxis VTE/DVT Device ordered at admit?: Yes VTE/DVT Prophylaxis med ordered at admit?: No Not Ordered - Medical Reason: Contraindicated
[2024-04-13] MEDS ORDERED: GI COCKTAIL 120 ML BOTTLE PO PRN (17:32)
[2024-04-13] MEDS: SODIUM CHLORIDE FLUSH 0.9% 10 ML SYRINGE IVP SCH (17:33)
[2024-04-13] MEDS: SODIUM CHLORIDE 0.9% 1,000 ML IV SCH (21:14)
[2024-04-13] MEDS: SODIUM CHLORIDE FLUSH 0.9% 10 ML SYRINGE IVP PRN (21:14)
[2024-04-14 01:13] LABS: HCT - HEMATOCRIT 24.6 % (42.0-52.0); HGB - HEMOGLOBIN 8.1 g/dL (14.0-18.0)
--- NOTE | 2024-04-14 06:59 | PROVIDER PROGRESS NOTE ---
Subjective - General Admit Date: 04/13/24 - Other Other Information/Narrative: Patient denies pain this AM. Tolerating clears, no n/v. No heartburn. He reports one med brown stool overnight. Objective - Patient Data Vital Signs: Vital Signs x48h Temp Pulse Pulse Resp BP Pulse Ox 04/14/24 05:30 88 04/14/24 01:30 89 04/13/24 23:35 36.8 C 82 18 144/89 H 99 Weight: Weight 04/12/24 04/13/24 04/14/24 23:59 23:59 23:59 Weight (kg) 140.614 kg Intake & Output: Intake and Output Totals x24h 04/12/24 04/13/24 04/14/24 23:59 23:59 23:59 Intake Total 620 Balance 620 - Lab Results Lab Results: 04/14/24 01:08 04/13/24 10:54 Other Lab Results: Lab Results x24hrs 04/14/24 04/13/24 04/13/24 Range/Units 01:08 12:06 12:05 WBC (4.8-10.8) x10^3/uL RBC (4.70-6.10) 10^6/uL Hgb 8.1 L (14.0-18.0) g/dL Hct 24.6 L (42.0-52.0) % MCV (80.0-94.0) fL MCH (27.0-31.0) pg MCHC (32.0-36.0) g/dL RDW (12.0-15.0) % Plt Count (130-450) 10^3/uL MPV (7.4-11.4) fL Neut # (Auto) (1.5-6.6) 10^3/uL Lymph # (Auto) (1.5-3.5) 10^3/uL Winn # (Auto) (0.0-1.0) 10^3/uL Eos # (Auto) (0.0-0.7) 10^3/uL Baso # (Auto) (0.0-0.1) 10^3/uL Absolute Nucleated RBC x10^3/uL Nucleated RBC % /100WBC PT (9.9-12.6) secs INR (0.8-1.2) Sodium (135-145) mmol/L Potassium (3.5-4.5) mmol/L Chloride (101-111) mmol/L Carbon Dioxide (21-32) mmol/L Anion Gap (6-13) BUN (6-20) mg/dL Creatinine (0.6-1.3) mg/dL Estimated GFR (MDRD) (>89) Glucose (74-104) mg/dL Calcium (8.5-10.3) mg/dL Total Bilirubin (0.2-1.0) mg/dL AST (10-42) IU/L ALT (10-60) IU/L Alkaline Phosphatase (42-121) IU/L Troponin I High Sens (2.3-19.7) ng/L B-Natriuretic Peptide (5-100) pg/mL Total Protein (6.4-8.9) g/dL Albumin (3.2-5.5) g/dL Globulin (2.1-4.2) g/dL Albumin/Globulin Ratio (1.0-2.2) Lipase (11-82) U/L Blood Type O POSITIVE Blood Type Recheck O POSITIVE Antibody Screen NEGATIVE Crossmatch IS Only See Detail 04/13/24 04/13/24 04/13/24 Range/Units 11:01 10:54 10:54 WBC (4.8-10.8) x10^3/uL RBC (4.70-6.10) 10^6/uL Hgb (14.0-18.0) g/dL Hct (42.0-52.0) % MCV (80.0-94.0) fL MCH (27.0-31.0) pg MCHC (32.0-36.0) g/dL RDW (12.0-15.0) % Plt Count (130-450) 10^3/uL MPV (7.4-11.4) fL Neut # (Auto) (1.5-6.6) 10^3/uL Lymph # (Auto) (1.5-3.5) 10^3/uL Winn # (Auto) (0.0-1.0) 10^3/uL Eos # (Auto) (0.0-0.7) 10^3/uL Baso # (Auto) (0.0-0.1) 10^3/uL Absolute Nucleated RBC x10^3/uL Nucleated RBC % /100WBC PT 14.5 H (9.9-12.6) secs INR 1.4 H (0.8-1.2) Sodium 139 (135-145) mmol/L Potassium 3.5 (3.5-4.5) mmol/L Chloride 108 (101-111) mmol/L Carbon Dioxide 24 (21-32) mmol/L Anion Gap 7.0 (6-13) BUN 61 H (6-20) mg/dL Creatinine 1.6 H (0.6-1.3) mg/dL Estimated GFR (MDRD) 44 L (>89) Glucose 105 H (74-104) mg/dL Calcium 8.8 (8.5-10.3) mg/dL Total Bilirubin 0.2 (0.2-1.0) mg/dL AST 11 (10-42) IU/L ALT 12 (10-60) IU/L Alkaline Phosphatase 59 (42-121) IU/L Troponin I High Sens 14.3 (2.3-19.7) ng/L B-Natriuretic Peptide 26 (5-100) pg/mL Total Protein 5.9 L (6.4-8.9) g/dL Albumin 3.6 (3.2-5.5) g/dL Globulin 2.3 (2.1-4.2) g/dL Albumin/Globulin Ratio 1.6 (1.0-2.2) Lipase 24 (11-82) U/L Blood Type Blood Type Recheck Antibody Screen Crossmatch IS Only 04/13/24 Range/Units 10:54 WBC 7.8 (4.8-10.8) x10^3/uL RBC 1.82 L (4.70-6.10) 10^6/uL Hgb 5.2 L* (14.0-18.0) g/dL Hct 16.9 L* (42.0-52.0) % MCV 92.9 (80.0-94.0) fL MCH 28.6 (27.0-31.0) pg MCHC 30.8 L (32.0-36.0) g/dL RDW 14.4 (12.0-15.0) % Plt Count 268 (130-450) 10^3/uL MPV 10.0 (7.4-11.4) fL Neut # (Auto) 5.2 (1.5-6.6) 10^3/uL Lymph # (Auto) 1.8 (1.5-3.5) 10^3/uL Winn # (Auto) 0.7 (0.0-1.0) 10^3/uL Eos # (Auto) 0.1 (0.0-0.7) 10^3/uL Baso # (Auto) 0.0 (0.0-0.1) 10^3/uL Absolute Nucleated RBC 0.00 x10^3/uL Nucleated RBC % 0.0 /100WBC PT (9.9-12.6) secs INR (0.8-1.2) Sodium (135-145) mmol/L Potassium (3.5-4.5) mmol/L Chloride (101-111) mmol/L Carbon Dioxide (21-32) mmol/L Anion Gap (6-13) BUN (6-20) mg/dL Creatinine (0.6-1.3) mg/dL Estimated GFR (MDRD) (>89) Glucose (74-104) mg/dL Calcium (8.5-10.3) mg/dL Total Bilirubin (0.2-1.0) mg/dL AST (10-42) IU/L ALT (10-60) IU/L Alkaline Phosphatase (42-121) IU/L Troponin I High Sens (2.3-19.7) ng/L B-Natriuretic Peptide (5-100) pg/mL Total Protein (6.4-8.9) g/dL Albumin (3.2-5.5) g/dL Globulin (2.1-4.2) g/dL Albumin/Globulin Ratio (1.0-2.2) Lipase (11-82) U/L Blood Type Blood Type Recheck Antibody Screen Crossmatch IS Only AM lab pending - Current Medications Current Medications: Current Medications Generic Name Dose Route Start Last Admin Trade Name Freq PRN Reason Stop Dose Admin Sodium Chloride 10 ml 04/13/24 15:21 04/13/24 21:14 Sodium Chloride Flush 0.9% 10 Ml Syringe IVP 10 ml PRN PRN Administration NEEDED PER PROVIDER ORDERS Sodium Chloride 10 ml 04/13/24 17:00 04/13/24 21:21 Sodium Chloride Flush 0.9% 10 Ml Syringe IVP 10 ml [id number] [facility] Administration - Physical Exam Comments/Other: GEN: No acute distress, alert and oriented CV: RRR PULM: CPAP at bedside, patient not wearing ABD: soft, obese, non tender, no rebound or guarding EXT: no clubbing, cyanosis, or edema ABX Reporting Has patient been on IV antibiotics over the past 48 hours?: No Impression/Plan - Problem List Problem List: 63 y/o M with: Anemia, concern for GI bleed - guiac positive stool, s/p transfusion 2U pRBC's. Hgb went from 5-->8, repeat for stability pending this AM. - on BID ASA and NSAIDS. Recommend holding both of these medications and continuing PPI at this time (PO or IV, no drip needed). Patient should be on a PPI with h/o Yee's esophagus. - He remains hemodynamically stable. If his hgb is stable this AM, he can have regular diet and f/u for outpatient endoscopy (due for upper and lower). If not, recommend he be NPO for upper endoscopy later today. Renal mass - patient will need further workup, staging, referral to urology gout, htn - as per primary team I have discussed the patient with the primary medicine team. Surgery will continue to follow closely. Thank you for consulting me in the care of this patient!
[2024-04-14 07:16] LABS: CALCIUM 8.4 mg/dL (8.5-10.3); CREATININE 1.5 mg/dL (0.6-1.3); POTASSIUM 3.8 mmol/L (3.5-4.5)
[2024-04-14 07:23] LABS: HGB - HEMOGLOBIN 6.2 g/dL (14.0-18.0)
[2024-04-14 07:24] LABS: HCT - HEMATOCRIT 19.5 % (42.0-52.0)
--- NOTE | 2024-04-14 08:17 | PROVIDER PROGRESS NOTE ---
Subjective - Prog Note Date Prog Note Date: 04/14/24 Prog Note Time: 08:15 - Subjective Pt reports feeling: Improved Subjective: Feels stronger overnight than he felt at admission. He has gotten 2 units of blood since admission. H&H was repeated this morning and unfortunately his hemoglobin is 6.2. He definitely does not feel as poorly as he felt at the time of admission. Current Medications - Current Medications Current Medications: Medications Oxycodone HCl (Oxycodone 5 Mg Tablet) 5 mg PO Q4HR PRN PRN Reason: Pain 5 to 7 Acetaminophen (Acetaminophen 325 Mg Tablet) 650 mg PO Q4HR PRN PRN Reason: Pain 1 to 4, or Fever Multi-Ingredient Mouthwash/Gargle (Gi Cocktail 120 Ml Bottle) 30 ml PO Q4H PRN PRN Reason: Abdominal Pain Sodium Chloride (Normal Saline 0.9%) 1,000 mls @ 100 mls/hr IV .Q10H [facility] Pantoprazole Sodium (Pantoprazole 40 Mg Vial) 40 mg IVP DAILY [facility] Objective - Vital Signs/Intake & Output Vital Signs: Vital Signs x48h Temp Pulse Pulse Resp BP BP Pulse Ox 04/14/24 07:55 36.8 C 83 16 157/91 H 100 04/14/24 05:30 88 04/14/24 05:25 37.1 C 83 16 128/77 99 04/14/24 01:30 89 Intake & Output: Intake & Output 04/11/24 04/12/24 04/13/24 04/14/24 23:59 23:59 23:59 23:59 Intake Total 620 1250 Balance 620 1250 - Objective General Appearance: positive: No acute distress Eyes Bilateral: positive: Normal inspection ENT: positive: ENT inspection nml Neck: positive: Nml inspection Cardiovascular: positive: Regular rate & rhythm Abdomen: positive: Non-tender Skin: positive: Color nml Extremities: positive: Non-tender, Other (left TKA incision healing. expected amount of edema about 7 weeks post op) - Lab Results Fish Bones: 04/14/24 14:28 04/14/24 06:56 Other Labs: Lab Results x24hrs 04/14/24 04/14/24 04/14/24 Range/Units 06:56 06:56 01:08 WBC (4.8-10.8) x10^3/uL RBC (4.70-6.10) 10^6/uL Hgb 6.2 L* 8.1 L (14.0-18.0) g/dL Hct 19.5 L* 24.6 L (42.0-52.0) % MCV (80.0-94.0) fL MCH (27.0-31.0) pg MCHC (32.0-36.0) g/dL RDW (12.0-15.0) % Plt Count (130-450) 10^3/uL MPV (7.4-11.4) fL Neut # (Auto) (1.5-6.6) 10^3/uL Lymph # (Auto) (1.5-3.5) 10^3/uL [place] # (Auto) (0.0-1.0) 10^3/uL Eos # (Auto) (0.0-0.7) 10^3/uL Baso # (Auto) (0.0-0.1) 10^3/uL Absolute Nucleated RBC x10^3/uL Nucleated RBC % /100WBC PT (9.9-12.6) secs INR (0.8-1.2) Sodium 138 (135-145) mmol/L Potassium 3.8 (3.5-4.5) mmol/L Chloride 111 (101-111) mmol/L Carbon Dioxide 22 (21-32) mmol/L Anion Gap 5.0 L (6-13) BUN 40 H (6-20) mg/dL Creatinine 1.5 H (0.6-1.3) mg/dL Estimated GFR (MDRD) 47 L (>89) Glucose 96 (74-104) mg/dL Calcium 8.4 L (8.5-10.3) mg/dL Total Bilirubin (0.2-1.0) mg/dL AST (10-42) IU/L ALT (10-60) IU/L Alkaline Phosphatase (42-121) IU/L Troponin I High Sens (2.3-19.7) ng/L B-Natriuretic Peptide (5-100) pg/mL Total Protein (6.4-8.9) g/dL Albumin (3.2-5.5) g/dL Globulin (2.1-4.2) g/dL Albumin/Globulin Ratio (1.0-2.2) Lipase (11-82) U/L Blood Type Blood Type Recheck Antibody Screen Crossmatch IS Only 04/13/24 04/13/24 04/13/24 Range/Units 12:06 12:05 11:01 WBC (4.8-10.8) x10^3/uL RBC (4.70-6.10) 10^6/uL Hgb (14.0-18.0) g/dL Hct (42.0-52.0) % MCV (80.0-94.0) fL MCH (27.0-31.0) pg MCHC (32.0-36.0) g/dL RDW (12.0-15.0) % Plt Count (130-450) 10^3/uL MPV (7.4-11.4) fL Neut # (Auto) (1.5-6.6) 10^3/uL Lymph # (Auto) (1.5-3.5) 10^3/uL [place] # (Auto) (0.0-1.0) 10^3/uL Eos # (Auto) (0.0-0.7) 10^3/uL Baso # (Auto) (0.0-0.1) 10^3/uL Absolute Nucleated RBC x10^3/uL Nucleated RBC % /100WBC PT 14.5 H (9.9-12.6) secs INR 1.4 H (0.8-1.2) Sodium (135-145) mmol/L Potassium (3.5-4.5) mmol/L Chloride (101-111) mmol/L Carbon Dioxide (21-32) mmol/L Anion Gap (6-13) BUN (6-20) mg/dL Creatinine (0.6-1.3) mg/dL Estimated GFR (MDRD) (>89) Glucose (74-104) mg/dL Calcium (8.5-10.3) mg/dL Total Bilirubin (0.2-1.0) mg/dL AST (10-42) IU/L ALT (10-60) IU/L Alkaline Phosphatase (42-121) IU/L Troponin I High Sens (2.3-19.7) ng/L B-Natriuretic Peptide (5-100) pg/mL Total Protein (6.4-8.9) g/dL Albumin (3.2-5.5) g/dL Globulin (2.1-4.2) g/dL Albumin/Globulin Ratio (1.0-2.2) Lipase (11-82) U/L Blood Type O POSITIVE Blood Type Recheck O POSITIVE Antibody Screen NEGATIVE Crossmatch IS Only See Detail 04/13/24 04/13/24 04/13/24 Range/Units 10:54 10:54 10:54 WBC 7.8 (4.8-10.8) x10^3/uL RBC 1.82 L (4.70-6.10) 10^6/uL Hgb 5.2 L* (14.0-18.0) g/dL Hct 16.9 L* (42.0-52.0) % MCV 92.9 (80.0-94.0) fL MCH 28.6 (27.0-31.0) pg MCHC 30.8 L (32.0-36.0) g/dL RDW 14.4 (12.0-15.0) % Plt Count 268 (130-450) 10^3/uL MPV 10.0 (7.4-11.4) fL Neut # (Auto) 5.2 (1.5-6.6) 10^3/uL Lymph # (Auto) 1.8 (1.5-3.5) 10^3/uL [place] # (Auto) 0.7 (0.0-1.0) 10^3/uL Eos # (Auto) 0.1 (0.0-0.7) 10^3/uL Baso # (Auto) 0.0 (0.0-0.1) 10^3/uL Absolute Nucleated RBC 0.00 x10^3/uL Nucleated RBC % 0.0 /100WBC PT (9.9-12.6) secs INR (0.8-1.2) Sodium 139 (135-145) mmol/L Potassium 3.5 (3.5-4.5) mmol/L Chloride 108 (101-111) mmol/L Carbon Dioxide 24 (21-32) mmol/L Anion Gap 7.0 (6-13) BUN 61 H (6-20) mg/dL Creatinine 1.6 H (0.6-1.3) mg/dL Estimated GFR (MDRD) 44 L (>89) Glucose 105 H (74-104) mg/dL Calcium 8.8 (8.5-10.3) mg/dL Total Bilirubin 0.2 (0.2-1.0) mg/dL AST 11 (10-42) IU/L ALT 12 (10-60) IU/L Alkaline Phosphatase 59 (42-121) IU/L Troponin I High Sens 14.3 (2.3-19.7) ng/L B-Natriuretic Peptide 26 (5-100) pg/mL Total Protein 5.9 L (6.4-8.9) g/dL Albumin 3.6 (3.2-5.5) g/dL Globulin 2.3 (2.1-4.2) g/dL Albumin/Globulin Ratio 1.6 (1.0-2.2) Lipase 24 (11-82) U/L Blood Type Blood Type Recheck Antibody Screen Crossmatch IS Only Sepsis Event Note (H) - Evaluation Current Stage of Sepsis: Ruled out Assessment/Plan - Problem List (1) GI bleed Impression: Mr. Baron presents with a one day history of fatigue, dyspnea on exertion, and light-headness with dark "foul smelling" stool. Knee injury in September 2023 lead ing to lots of NSAID use and ultimately to a left total knee replacement on 02/18/2024 with subsequent NSAID use then aspirin for DVT prophylaxis. He was found to be anemic in the ED with a Hbg of 5.2 and his stool was guiac positive. Hemodynamically stable. 2 units of packed red blood cells were ordered by the ED provider and he was transferred to the hospital floor for serial hemograms and observation. He has been started on protonix and will hold his home ASA. Surgery was consulted from the emergency department and they are following along. This morning he unfortunately dropped his hemoglobin again and was taken to the operating room for endoscopy. At the time of endoscopy, a small lesion was noted at the GE junction. Multiple biopsies were sent. He has received an additional unit of blood and will stay for a second midnight to monitor hemograms. He has been started on a regular diet. Patient has been discussed with of general surgery several times today. (2) Anemia Conclusion/Plan: Acute post-hemorrhagic anemia due to GI bleed as discussed above. He has had mild anemia in the past but was not anemic at his last visit in 2022 with a hbg of 14.0. Qualifiers: Other causes of anemia: acute posthemorrhagic (3) Hypertension Conclusion/Plan: Chronic HTN, on amlodipine 5 mg PO @ HS. I will continue his home medications and monitor his blood pressure during his admission. He is currently hemodynaically stable with a last BP of 146/71 Qualifiers: Hypertension type: primary hypertension Qualified Code(s): I10 - Essential (primary) hypertension (4) Kidney mass Conclusion/Plan: Left partially exophytic encapsulated mass with central necrosis renal mass m easuring 5.4 cm along the lateral border concerning for carcinoma on abdominal CT. There is no invasion of renal vein and no retroperitoneal adenopathy. This has not been previously reported and he will need to follow-up with PCP For urology referral and further workup after discharge. Will also need renal ultrasound. (5) Chronic renal insufficiency, stage III (moderate) Conclusion/Plan: Stage 3b CKD with a GFR of 44 and creatinine of 1.6 on admission, unchanged from his visit on 05/06/23. He has been advised to avoid additional NSAID use and will follow with his PCP. As his renal function is stable from 1 year ago, he does not have an PARRIS related to the GI bleed. He will continue to follow with his PCP in the outpatient setting. Qualifiers: Chronic kidney disease stage 3 subtype: stage 3b (GFR 30-44) Qualified Code(s): N18.32 - Chronic kidney disease, stage 3b (6) Sleep apnea Conclusion/Plan: Hx of sleep apnea, uses CPAP at night. He will need to use a CPAP machine from [facility] during his admission. His home CPAP mask has a leak. (7) GERD (gastroesophageal reflux disease) Conclusion/Plan: Hx of GERD with previous ablation of Yee's esophagus in 2012. He states the CPAP helps prevent reflux at night. He will be on protonix during his admission.It was impressed upon him that with his history of Yee's esophagus and now with an upper GI bleed he should plan to be on a proton pump inhibitor for the rest of his life.
[2024-04-14] MEDS: PANTOPRAZOLE 40 MG VIAL IVP SCH (08:20)
[2024-04-14] MEDS: SODIUM CHLORIDE 0.9% 1,000 ML IV SCH (08:36)
[2024-04-14 10:05] LABS: HCT - HEMATOCRIT 20.9 % (42.0-52.0)
[2024-04-14 10:07] LABS: HGB - HEMOGLOBIN 6.7 g/dL (14.0-18.0)
[2024-04-14] MEDS ORDERED: LIDOCAINE-MPF 2% 5 ML VIAL ONE (13:05)
[2024-04-14] MEDS ORDERED: PROPOFOL 200 MG/20 ML VIAL IVP ONE (13:05)
--- NOTE | 2024-04-14 13:27 | ANESTHESIA ---
Pre-Anesthesia VS, & Labs - Diagnosis GI BLEED - Procedure EGD Vital Signs: Temp Pulse Resp BP Pulse Ox O2 Flow Rate 36.9 C 79 16 166/80 H 100 04/14/24 13:07 04/14/24 13:07 04/14/24 13:07 04/14/24 13:07 04/14/24 13:07 Height: 6 ft 4 in Weight (kg): 140.614 kg Body Mass Index: 37.7 BMI Classification: Obese - NPO >8 hours - Lab Results Current Lab Results: Laboratory Tests 04/14/24 10:00: Hgb 6.7 L*, Hct 20.9 L 04/14/24 06:56: Hgb 6.2 L*, Hct 19.5 L* 04/14/24 06:56: Sodium 138, Potassium 3.8, Chloride 111, Carbon Dioxide 22, Anion Gap 5.0 L, BUN 40 H, Creatinine 1.5 H, Estimated GFR (MDRD) 47 L, Glucose 96, Calcium 8.4 L 04/14/24 01:08: Hgb 8.1 L, Hct 24.6 L 04/13/24 12:06: Blood Type O POSITIVE, Antibody Screen NEGATIVE, Crossmatch IS Only See Detail 04/13/24 12:05: Blood Type Recheck O POSITIVE 04/13/24 11:01: PT 14.5 H, INR 1.4 H 04/13/24 10:54: B-Natriuretic Peptide 26 04/13/24 10:54: Sodium 139, Potassium 3.5, Chloride 108, Carbon Dioxide 24, Anion Gap 7.0, BUN 61 H, Creatinine 1.6 H, Estimated GFR (MDRD) 44 L, Glucose 1 05 H, Calcium 8.8, Total Bilirubin 0.2, AST 11, ALT 12, Alkaline Phosphatase 59, Troponin I High Sens 14.3, Total Protein 5.9 L, Albumin 3.6, Globulin 2.3, Albumin/Globulin Ratio 1.6, Lipase 24 04/13/24 10:54: WBC 7.8, RBC 1.82 L, Hgb 5.2 L*, Hct 16.9 L*, MCV 92.9, MCH 28.6, MCHC 30.8 L, RDW 14.4, Plt Count 268, MPV 10.0, Neut # (Auto) 5.2, Lymph # (Auto) 1.8, [place] # (Auto) 0.7, Eos # (Auto) 0.1, Baso # (Auto) 0.0, Absolute Nucleated RBC 0.00, Nucleated RBC % 0.0 Lab results reviewed: Yes Fish Bones: 04/14/24 10:00 04/14/24 06:56 Home Medications and Allergies Home Medications: Ambulatory Orders Aspirin [Yodit] 162.5 mg PO DAILY 04/13/24 Ibuprofen 200 mg PO DAILY 04/13/24 Multivitamin,Therapeutic [Thera-Tabs] 1 each PO DAILY 04/13/24 amLODIPine [Norvasc] 1 tab PO HS 04/13/24 Active Medications Acetaminophen (Acetaminophen 325 Mg Tablet) 650 mg PO Q4HR PRN PRN Reason: Pain 1 to 4, or Fever Sodium Chloride (Normal Saline 0.9%) 1,000 mls @ 100 mls/hr IV .Q10H [facility] Last Admin: 04/14/24 08:36 Dose: 100 mls/hr Multi-Ingredient Mouthwash/Gargle (Gi Cocktail 120 Ml Bottle) 30 ml PO Q4H PRN PRN Reason: Abdominal Pain Ondansetron HCl (Ondansetron Odt 4 Mg Tablet) 4 mg TL Q6HR PRN PRN Reason: Nausea / Vomiting Ondansetron HCl (Ondansetron 4 Mg/2 Ml Vial) 4 mg IVP Q6HR PRN PRN Reason: Nausea / Vomiting Oxycodone HCl (Oxycodone 5 Mg Tablet) 5 mg PO Q4HR PRN PRN Reason: Pain 5 to 7 Pantoprazole Sodium (Pantoprazole 40 Mg Vial) 40 mg IVP DAILY [facility] Last Admin: 04/14/24 08:20 Dose: 40 mg Sodium Chloride (Sodium Chloride Flush 0.9% 10 Ml Syringe) 10 ml IVP PRN PRN PRN Reason: NEEDED PER PROVIDER ORDERS Last Admin: 04/13/24 21:14 Dose: 10 ml Sodium Chloride (Sodium Chloride Flush 0.9% 10 Ml Syringe) 10 ml IVP 0100,0900,1700 [facility] Last Admin: 04/14/24 08:20 Dose: 10 ml Aspirin [Yodit] 162.5 mg PO DAILY 04/13/24 Ibuprofen 200 mg PO DAILY 04/13/24 Multivitamin,Therapeutic [Thera-Tabs] 1 each PO DAILY 04/13/24 amLODIPine [Norvasc] 1 tab PO HS 04/13/24 Allergies/Adverse Reactions: Allergies Allergy/AdvReac Type Severity Reaction Status Date / Time Sulfa (Sulfonamide Allergy Hives Verified 04/13/24 10:30 Antibiotics) venom-wasp [Wasp Venom] Allergy swelling Verified 04/13/24 10:30 oxycodone AdvReac Emesis Verified 04/13/24 16:10 Anes History & Medical History - Anesthetic History Anesthesia Complications: reports: No previous complications - Medical History Cardiovascular: reports: Hypertension Pulmonary: reports: None, Sleep apnea, CPAP use (Sleep apnea) Gastrointestinal: reports: GERD, Other. denies: GI bleed, Ulcers Urinary: reports: None, Renal insuffiency Neuro: reports: None Musculoskeletal: reports: Osteoarthritis, Gout, Other (Spinal stenosis, Left ACL tear 09/21/23, Left knee replacement 02/18/24) Endocrine/Autoimmune: reports: None Blood Disorders: reports: None Skin: reports: None Smoking Status: Former smoker (30 YEARS QUIT IN 2003) Psychosocial: reports: No issues indicated - Surgical History General: reports: Appendectomy, EGD (Yee's esophagus with ablation 2012) Orthopedic: reports: Knee replacement (L knee 02/18/24) Exam General: Alert, Oriented x3 Dental: WNL Mouth Openin Fingerbreadth Neck Mobility: Normal Mallampati classification: II Thyromental Distance: 4-6 cm Respiratory: Lungs clear Cardiovascular: Regular rate Plan Anesthesia Type: Total IV Consent for Procedure(s) Verified and Reviewed: Yes Code Status: Attempt Resuscitation ASA classification: 3-Severe systemic disease Is this case an emergency?: Yes
[2024-04-14] MEDS ORDERED: MIDAZOLAM 2 MG/2 ML VIAL ONE (13:41)
[2024-04-14] MEDS: BENZOCAINE/TETRACAINE/BUTAMBEN 20 GM TOP ONE (13:51)
--- NOTE | 2024-04-14 14:13 | ANESTHESIA POST OP EVALUATION ---
Anesthesia Post Eval - Post Anesthesia Eval Vitals: Last Vital Signs Temp 36.9 C 04/14/24 13:07 Pulse 79 04/14/24 13:07 Resp 16 04/14/24 13:07 BP 166/80 H 04/14/24 13:07 Pulse Ox 100 04/14/24 13:07 O2 Flow Rate CV Function Including HR & BP: Stable Pain Control: Satisfactory Nausea & Vomiting: Negative Mental Status: Baseline Respiratory Status: Airway Patent Hydration Status: Satisfactory Anesthesia Complications: None
[2024-04-14] MEDS: amLODIPine 5 MG TABLET PO SCH (21:13)
[2024-04-15 05:47] LABS: BASOPHILS % (AUTO) 0.2 %; EOSINOPHILS # (AUTO) 0.2 10^3/uL (0.0-0.7); HCT - HEMATOCRIT 21.7 % (42.0-52.0); LYMPHOCYTES # (AUTO) 1.5 10^3/uL (1.5-3.5); LYMPHOCYTES % (AUTO) 15.9 %; MEAN CORPUSCULAR HEMOGLOBIN 30.2 pg (27.0-31.0); MEAN CORPUSCULAR HGB CONC 32.3 g/dL (32.0-36.0); MEAN CORPUSCULAR VOLUME 93.5 fL (80.0-94.0); MEAN PLATELET VOLUME 10.7 fL (7.4-11.4); MONOCYTES # (AUTO) 0.8 10^3/uL (0.0-1.0); MONOCYTES % (AUTO) 7.9 %; NEUTROPHILS # (AUTO) 7.2 10^3/uL (1.5-6.6); NEUTROPHILS % (AUTO) 73.8 %; PLT - PLATELET COUNT 254 10^3/uL (130-450); RED BLOOD COUNT 2.32 10^6/uL (4.70-6.10); RED CELL DISTRIBUTION WIDTH 15.5 % (12.0-15.0); WHITE BLOOD COUNT 9.7 x10^3/uL (4.8-10.8)
[2024-04-15 06:00] LABS: CALCIUM 8.3 mg/dL (8.5-10.3); CREATININE 1.5 mg/dL (0.6-1.3); POTASSIUM 3.8 mmol/L (3.5-4.5)
--- NOTE | 2024-04-15 07:35 | PROVIDER PROGRESS NOTE ---
Subjective - General Admit Date: 04/13/24 - Other Other Information/Narrative: Patient denies pain, n/v. He did report having a "medium dark, but not black" stool last night. Tolerating clears. No dizziness. Overall feeling better. Objective - Patient Data Vital Signs: Vital Signs x48h Temp Pulse Pulse Resp BP Pulse Ox 04/15/24 05:44 37.3 C 93 18 156/80 H 98 04/15/24 04:45 37.0 C 91 18 150/89 H 99 04/15/24 00:15 90 04/15/24 00:01 37.1 C 84 20 151/84 H 99 Weight: Weight 04/13/24 04/14/24 04/15/24 23:59 23:59 23:59 Weight (kg) 140.614 kg 140.614 kg Intake & Output: Intake and Output Totals x24h 04/13/24 04/14/24 04/15/24 23:59 23:59 23:59 Intake Total 620 3001.667 Balance 620 3001.667 - Lab Results Lab Results: 04/15/24 04:42 04/15/24 04:42 Other Lab Results: Lab Results x24hrs 04/15/24 04/15/24 04/14/24 Range/Units 04:42 04:42 14:28 WBC 9.7 (4.8-10.8) x10^3/uL RBC 2.32 L (4.70-6.10) 10^6/uL Hgb 7.0 L* 6.6 L* (14.0-18.0) g/dL Hct 21.7 L (42.0-52.0) % MCV 93.5 (80.0-94.0) fL MCH 30.2 (27.0-31.0) pg MCHC 32.3 (32.0-36.0) g/dL RDW 15.5 H (12.0-15.0) % Plt Count 254 (130-450) 10^3/uL MPV 10.7 (7.4-11.4) fL Neut # (Auto) 7.2 H (1.5-6.6) 10^3/uL Lymph # (Auto) 1.5 (1.5-3.5) 10^3/uL [place] # (Auto) 0.8 (0.0-1.0) 10^3/uL Eos # (Auto) 0.2 (0.0-0.7) 10^3/uL Baso # (Auto) 0.0 (0.0-0.1) 10^3/uL Absolute Nucleated RBC 0.00 x10^3/uL Nucleated RBC % 0.0 /100WBC Sodium 138 (135-145) mmol/L Potassium 3.8 (3.5-4.5) mmol/L Chloride 112 H (101-111) mmol/L Carbon Dioxide 21 (21-32) mmol/L Anion Gap 5.0 L (6-13) BUN 29 H (6-20) mg/dL Creatinine 1.5 H (0.6-1.3) mg/dL Estimated GFR (MDRD) 47 L (>89) Glucose 111 H (74-104) mg/dL Calcium 8.3 L (8.5-10.3) mg/dL Blood Type Antibody Screen Crossmatch IS Only 04/14/24 04/13/24 Range/Units 10:00 12:06 WBC (4.8-10.8) x10^3/uL RBC (4.70-6.10) 10^6/uL Hgb 6.7 L* (14.0-18.0) g/dL Hct 20.9 L (42.0-52.0) % MCV (80.0-94.0) fL MCH (27.0-31.0) pg MCHC (32.0-36.0) g/dL RDW (12.0-15.0) % Plt Count (130-450) 10^3/uL MPV (7.4-11.4) fL Neut # (Auto) (1.5-6.6) 10^3/uL Lymph # (Auto) (1.5-3.5) 10^3/uL [place] # (Auto) (0.0-1.0) 10^3/uL Eos # (Auto) (0.0-0.7) 10^3/uL Baso # (Auto) (0.0-0.1) 10^3/uL Absolute Nucleated RBC x10^3/uL Nucleated RBC % /100WBC Sodium (135-145) mmol/L Potassium (3.5-4.5) mmol/L Chloride (101-111) mmol/L Carbon Dioxide (21-32) mmol/L Anion Gap (6-13) BUN (6-20) mg/dL Creatinine (0.6-1.3) mg/dL Estimated GFR (MDRD) (>89) Glucose (74-104) mg/dL Calcium (8.5-10.3) mg/dL Blood Type O POSITIVE Antibody Screen NEGATIVE Crossmatch IS Only See Detail - Current Medications Current Medications: Current Medications Generic Name Dose Route Start Last Admin Trade Name Freq PRN Reason Stop Dose Admin Amlodipine Besylate 5 mg 04/14/24 21:00 04/14/24 21:13 Amlodipine 5 Mg Tablet PO 5 mg HS [facility] Administration Sodium Chloride 1,000 mls @ 100 mls/hr 04/14/24 09:00 04/14/24 22:23 Normal Saline 0.9% IV 100 mls/hr .Q10H [facility] Infusion Pantoprazole Sodium 40 mg 04/14/24 09:00 04/14/24 08:20 Pantoprazole 40 Mg Vial IVP 40 mg DAILY [facility] Administration Sodium Chloride 10 ml 04/13/24 15:21 04/13/24 21:14 Sodium Chloride Flush 0.9% 10 Ml Syringe IVP 10 ml PRN PRN Administration NEEDED PER PROVIDER ORDERS Sodium Chloride 10 ml 04/13/24 17:00 04/15/24 00:07 Sodium Chloride Flush 0.9% 10 Ml Syringe IVP Not Given 0100,0900,1700 [facility] - Physical Exam Comments/Other: GEN: NAD, alert and oriented CV: RRR Pulm: non labored, on RA Abd: obese, soft, NT, ND, no r/g Ext: no c/c/e Impression/Plan - Problem List Problem List: 63 y/o M with: Anemia, concern for GI bleed - guiac positive stool, s/p transfusion 3U pRBC's total since admission. Hgb went from 5-->8-->6-->7, repeat for stability ordered for noon today. - EGD did not show inflammation or ulcers in stomach or duodenum but did show an erosion and inflammation about the GE junction. Biopsies taken. Pathology pending. - BID ASA and NSAIDS (ibu) held since admission and PPI started. Agree with continuing PPI at this time (PO or IV, no drip needed). Patient should be on a PPI with h/o Yee's esophagus. - He remains hemodynamically stable. If his hgb is stable at noon, he can have regular diet and f/u for outpatient colonoscopy. If not, we will proceed with bowel prep this afternoon for colonoscopy when clear, likely tomorrrow Right renal mass - patient will need further workup, staging, referral to urology gout, htn - as per primary team I have discussed the patient with the primary medicine team. Surgery will continue to follow closely. Thank you for consulting me in the care of this patient!
[2024-04-15 08:31] VITALS: BP 161/85
[2024-04-15] MEDS: FERRIC GLUCONATE 125 MG in SODIUM CHLORIDE 0.9% 100ML 100 ML IV ONE (08:32)
[2024-04-15 13:12] VITALS: O2SAT 99
--- NOTE | 2024-04-15 13:14 | Discharge Plan ---
Discharge Plan Problem Reviewed?: Yes Disposition: Home, Self Care Condition: Good Prescriptions: Iron,Carb/Vit C/Vit B12/Folic [Fe C Plus Tablet] 1 each PO DAILY #30 tablet Pantoprazole [Protonix] 40 mg PO QDAC 90 Days #90 tab Diet: Regular Activity Restrictions: No Restrictions Shower Restrictions: No Driving Restrictions: Yes (until you feel steady and not prone to weakness, no driving) Weight Bearing: Full Weight Instruction Topics: Bleeding Gastrointestinal, Esophagus Yee Health Concerns: You came into the hospital with anemia. We think that anemia is due to bleeding in your gut. The reason we think this is because your stools were black, and because Dr Azar saw a suspicious area when she looked at your esophagus. you need to give your body iron. There are many ways you can do this. You can eat dark green leafy vegetables. You can take iron supplements. For iron supplementation, you can take the pills that I sent in to the pharmacy. You could also take vitamins, make sure that that you get the ones with iron. These also have lots of B vitamins in them. I have given you some IV iron here in the hospital. Additionally you need to be on a medication called proton pump inhibitor for the rest of your life. This is because of the history of Yee's esophagus. You need to follow-up with your primary care doctor. This is very important. You have a mass on your kidney and we know very little about that mass at this time. You need an ultrasound on your kidney and you may need to see a urologist. The urologist is a doctor who helps with surgical problems in the urinary tract. You need to follow-up closely with our surgery practice here in [place]. You do need a colonoscopy but this can be done electively. It does not need to be done by Dr. Azar but it does need to happen! Plan of Treatment: Workup of renal mass Treatment of anemia Return immediately to the hospital if you become symptomatic as before. Care Goals: Resolution of anemia Figuring out what is going on with your kidney mass No Smoking: If you smoke, Please STOP! Call for help. Follow-up with: NORMA BARNES PA-C [Primary Care Provider] -
--- NOTE | 2024-04-15 13:41 | DISCHARGE SUMMARY ---
Discharge Summary Admit Date: 04/14/24 Discharge Date: 04/15/24 Discharging Provider: Miladis Quintanilla PA-C Primary Care Provider: [facility] Medical Code Status: Attempt Resuscitation Condition at Discharge: Good Discharge Disposition: 01 Home, Self Care - DIAGNOSES Admission Diagnoses: GI bleed Anemia Hypertension Kidney mass Chronic renal sufficiency stage III Sleep apnea GERD Discharge Diagnoses with Status of Each Condition: (1) GI bleed Impression: Mr. Baron presents with a one day history of fatigue, dyspnea on exertion, and light-headness with dark "foul smelling" stool. Knee injury in September 2023 leading to lots of NSAID use and ultimately to a left total knee replacement on 02/18/2024 with subsequent NSAID use then aspirin for DVT prophylaxis. He was found to be anemic in the ED with a Hbg of 5.2 and his stool was guiac positive. Hemodynamically stable. 2 units of packed red blood cells were ordered by the ED provider and he was transferred to the hospital floor for serial hemograms and observation. He has been started on protonix and will hold his home ASA. Surgery was consulted from the emergency department. On hospital day 2 his hemoglobin dropped again and he was taken to the operating room for endoscopy. At the time of endoscopy, a small lesion was noted at the GE junction. Multiple biopsies were sent. He received an additional unit of blood and stayed for monitoring of his hemoglobin. He did have several stools none of which had madina melena as before. Hemoglobin trend as follows: Laboratory Tests 04/13/24 04/14/24 04/14/24 10:54 01:08 06:56 Hgb 5.2 L* 8.1 L 6.2 L* 04/14/24 04/14/24 04/15/24 10:00 14:28 04:42 Hgb 6.7 L* 6.6 L* 7.0 L* 04/15/24 11:55 Hgb 7.4 L Patient was discussed with Dr. Wayne prior to discharge. Her recommendations are that he follow-up with general surgery here in [place] for colonoscopy as he does have a history of colon polyps. He should return for any symptomatic anemia. (2) Anemia Conclusion/Plan: Acute post-hemorrhagic anemia due to GI bleed as discussed above. He has had mild anemia in the past but was not anemic at his last visit in 2022 with a hbg of 14.0. He has been instructed to discontinue aspirin and NSAIDs. He has been instructed to start on outpatient iron supplementation. He was given Ferrlecit 125 mg IV while inpatient. Qualifiers: Other causes of anemia: acute posthemorrhagic (3) Hypertension Conclusion/Plan: Chronic HTN, on amlodipine 5 mg PO @ HS.Home medications were continued during his hospitalization. Qualifiers: Hypertension type: primary hypertension Qualified Code(s): I10 - Essential (primary) hypertension (4) Kidney mass Conclusion/Plan: Left partially exophytic encapsulated mass with central necrosis renal mass measuring 5.4 cm along the lateral border concerning for carcinoma on abdominal CT. There is no invasion of renal vein and no retroperitoneal adenopathy. This has not been previously reported and he will need to follow-up with PCP For urology referral and further workup after discharge. Will also need renal ultrasound.Patient's been informed of this finding and he is aware of the impo rtance of follow-up. (5) Chronic renal insufficiency, stage III (moderate) Conclusion/Plan: Stage 3b CKD with a GFR of 44 and creatinine of 1.6 on admission, unchanged from his visit on 05/06/23. He has been advised to avoid additional NSAID use and will follow with his PCP. As his renal function is stable from 1 year ago, he does not have an PARRIS related to the GI bleed. He will continue to follow with his PCP in the outpatient setting. Qualifiers: Chronic kidney disease stage 3 subtype: stage 3b (GFR 30-44) Qualified Code(s): N18.32 - Chronic kidney disease, stage 3b (6) Sleep apnea Conclusion/Plan: Hx of sleep apnea, uses CPAP at night. Hospital CPAP was used while he was inpatient. He does have a leak in his mask at home.. (7) GERD (gastroesophageal reflux disease) Conclusion/Plan: Hx of GERD with previous ablation of Yee's esophagus in 2012. He states the CPAP helps prevent reflux at night. .It was impressed upon him that with his history of Yee's esophagus and now with an upper GI bleed he should plan to be on a proton pump inhibitor for the rest of his life. - HPI History of Present Illness: From admission H&P: 63-year-old male with history of hypertension, GERD, osteoarthritis, gout, left knee arthroplasty presented to the ED on 04/13/24. Patient says February 17 of this year he had his left knee replaced he had his labs drawn prior to surgery and said that there was no significant acute abnormalities. Overall he says he has been recovering well from surgery he said that he started taking 81 mg of aspirin twice a day per recommendations of surgeons and has been able to participate in all PT and has been overall feeling well. Yesterday he started to notice significant weakness and dizziness after he was lifting something heavy to the point where he had a near syncopal episode. He went inside and checked his blood pressure and it was found to be 80/60 with a heart rate of 104. He continued to feel weak with generalized malaise today and decided to come to the emergency department for further evaluation. He said that he has been having dark bowel movements with a "foul smell" but he says he thinks that they are mostly brown, no hematemesis, no nausea or vomiting, no abdominal pain. - CONSULTS | PROCEDURES Consultations: General Surgery, Bárbara Azar Procedures: EGD. multiple biopsies taken. erosion at GE junction - HOSPITAL COURSE Hospital Course: Admitted with melena and decreased hemoglobin consistent with GI bleed. This was in the setting of NSAID and aspirin use after knee injury in September of this year with subsequent knee replacement on 02/18/2024. Was transfused 2 units of packed red blood cells and did not respond appropriately. He remained mildly symptomatic with his anemia. He was taken to the operating room for EGD by general surgery. EGD did not show inflammation or ulcerations in stomach or duodenum but did show an erosion and inflammation about the GE junction. Multiple biopsies were taken. Incidental finding of renal mass on CT of the abdomen pelvis done in the emergency department. Will need further workup staging referral to urology. Patient was informed of this finding and recommendations for follow-up. Patient was placed on proton pump inhibitor therapy. He was instructed to continue this for the rest of his life as he does have a history of Yee's esophagus. Patient was also informed of need for outpatient follow-up colonoscopy. He has a history of polyps has been greater than 10 years since his last colonoscopy. - ALLERGIES Allergies/Adverse Reactions: Allergies Allergy/AdvReac Type Severity Reaction Status Date / Time Sulfa (Sulfonamide Allergy Hives Verified 04/13/24 10:30 Antibiotics) venom-wasp [Wasp Venom] Allergy swelling Verified 04/13/24 10:30 oxycodone AdvReac Emesis Verified 04/13/24 16:10 - MEDICATIONS Home Medications: Ambulatory Orders Medication Instructions Recorded Confirmed Multivitamin,Therapeutic 1 each PO DAILY 04/13/24 04/13/24 [Thera-Tabs] amLODIPine [Norvasc] 1 tab PO HS 04/13/24 04/13/24 Iron,Carb/Vit C/Vit B12/Folic [Fe 1 each PO DAILY #30 tablet 04/15/24 C Plus Tablet] Pantoprazole [Protonix] 40 mg PO QDAC 90 Days #90 tab 04/15/24 - LABS Result Diagrams: 04/15/24 11:55 04/15/24 04:42 - SEPSIS Current Stage of Sepsis: Ruled out
[2024-04-16] MEDS ORDERED: PANTOPRAZOLE 40 MG TABLET PO SCH (07:00)
== END 2024-04-15 14:06 | disposition home or self-care (01) ==
LOC: ED 10:24 → MS2 15:21
PROVIDERS: ADMIT Specialist; ATTEND Specialist
PROC: 0DB78ZX Excision of Stomach, Pylorus, Via Natural or Artificial Opening Endoscopic, Diagnostic (ICD-10-PCS; 2024-04-14)
PROC: 0DB48ZX Excision of Esophagogastric Junction, Via Natural or Artificial Opening Endoscopic, Diagnostic (ICD-10-PCS; principal; 2024-04-14 13:45)
DX: K92.1 Melena (principal); I12.9 Hypertensive chronic kidney disease with stage 1 through stage 4 chronic kidney disease, or unspecified chronic kidney disease; G47.30 Sleep apnea, unspecified; K21.9 Gastro-esophageal reflux disease without esophagitis; N28.89 Other specified disorders of kidney and ureter; D62 Acute posthemorrhagic anemia; N18.32 Chronic kidney disease, stage 3b; M19.90 Unspecified osteoarthritis, unspecified site; M10.9 Gout, unspecified; R07.9 Chest pain, unspecified; E66.9 Obesity, unspecified; Z68.37 Body mass index [BMI] 37.0-37.9, adult; Z79.1 Long term (current) use of non-steroidal anti-inflammatories (NSAID); Z79.82 Long term (current) use of aspirin
CPT/HCPCS: 36415; 36430; 43239; 71045; 74177; 80048; 80053; 82272; 83690; 83880; 84484; 85014; 85018; 85025; 85610; 86850; 86900; 86901; 86920; 93005; 94660; 96361; 96374; 99284; 99285; A9270; G0378; J2916; P9016; Q9967

== ENCOUNTER 2024-04-29 21:21 | Outpatient (CLI) | payer BC, OTHER ==
--- NOTE | 2024-04-30 17:14 | Ultrasound Report ---
PROCEDURE: Aorta Screening INDICATIONS: SCREENING FOR CARDIOVASCULAR DISEASE TECHNIQUE: Real time scanning was performed of the aorta and iliac arteries, with image documentatio n. COMPARISON: CT abdomen and pelvis on April 13, 2024. FINDINGS: Proximal and mid abdominal aorta are not well seen secondary to patient body habitus and b owel gas. Aorta: Proximal aortic diameter measures 2.6 cm. Mid-aorta measures 2.9 cm. Distal aortic diameter is 4.3 x 3.8 cm. Infrarenal abdominal aorta measured 4.2 x 3[address] dated April 13, 2024 (serie s 2, image 72). Iliac arteries: Right common iliac artery measures 1.7 x 1.9 cm. Left common iliac artery measures 1.5 x 1.5 cm. IMPRESSION: Evaluation is markedly limited secondary to patient body habitus and bowel gas. Proximal and mid abdominal aorta are not well seen. 1.Infrarenal abdominal aortic aneurysm which is better characterized on recent CT abdomen and pelvis dated April 13, 2024 measuring 4.3 x 3.8 cm. Recommend repeat ultrasound in one year. 2.Bilateral common iliac arteries are normal in caliber, where visualized. Recommended intervals for follow-up imaging of ectatic aortas and abdominal aortic aneurysms, per ACR consensus guidelines: 2.5-2.9 cm: 5 years 3.0-3.4 cm: 3 years 3.5-3.9 cm: 2 years 4.0-4.4 cm: 1 year 4.5-4.9 cm: 6 months + endovascular referral 5.0-5.5 cm: 3-6 months + endovascular referral Reviewed by: Jerel Ortiz MD on 04/30/2024 5:13 PM PDT Approved by: Jerel Ortiz MD on 04/30/2024 5:13 PM PDT Station ID: [id number]
== END 2024-04-29 21:22 | disposition home or self-care (01) ==
LOC: DI 21:21
PROVIDERS: ATTEND Internal Medicine
DX: Z13.6 Encounter for screening for cardiovascular disorders (principal); I71.40 Abdominal aortic aneurysm, without rupture, unspecified

== ENCOUNTER 2024-05-21 11:01 | Day surgery (SDC) | payer BC, OTHER ==
[2024-05-21] MEDS: LACTATED RINGERS 1,000 ML IV ONE (11:10)
[2024-05-21] MEDS ORDERED: PROPOFOL 500 MG/50 ML 500 MG/50 ML VIAL ONE (13:04)
--- NOTE | 2024-05-21 13:13 | ANESTHESIA ---
Pre-Anesthesia VS, & Labs - Diagnosis melena - Procedure colonoscopy Vital Signs: Temp Pulse Resp BP Pulse Ox O2 Flow Rate 36.3 C L 76 18 177/100 H 100 05/21/24 11:14 05/21/24 11:14 05/21/24 11:14 05/21/24 11:14 05/21/24 11:14 Height: 6 ft 4 in Weight (kg): 129.2 kg Body Mass Index: 34.7 BMI Classification: Obese - NPO >8 hours Home Medications and Allergies Home Medications: Ambulatory Orders Losartan Potassium 1 tab PO DAILY 05/20/24 Multivitamin,Therapeutic [Thera-Tabs] 1 each PO DAILY 04/13/24 Losartan Potassium 1 tab PO DAILY 05/20/24 Allergies/Adverse Reactions: Allergies Allergy/AdvReac Type Severity Reaction Status Date / Time Sulfa (Sulfonamide Allergy Hives Verified 05/20/24 15:07 Antibiotics) venom-wasp [Wasp Venom] Allergy swelling Verified 05/20/24 15:07 oxycodone AdvReac Emesis Verified 05/20/24 15:07 Anes History & Medical History - Anesthetic History Anesthesia Complications: reports: No previous complications Family history of Anesthesia Complications: Denies Family history of Malignant Hyperthermia: Denies - Medical History Cardiovascular: reports: Hypertension Pulmonary: reports: Sleep apnea, CPAP use Gastrointestinal: reports: GERD, Other Urinary: reports: None, Renal insuffiency Neuro: reports: None Musculoskeletal: reports: Osteoarthritis, Gout, Other Endocrine/Autoimmune: reports: None Blood Disorders: reports: None Skin: reports: None Smoking Status: Former smoker (30 YEARS QUIT IN 2003) Psychosocial: reports: No issues indicated - Surgical History General: reports: Appendectomy, EGD Orthopedic: reports: Knee replacement Exam General: Alert, Oriented x3, Cooperative Dental: WNL Mouth Openin Fingerbreadth Neck Mobility: Normal Mallampati classification: II Thyromental Distance: 4-6 cm Respiratory: Lungs clear Cardiovascular: Regular rate Plan Anesthesia Type: General, Total IV Consent for Procedure(s) Verified and Reviewed: Yes Code Status: Attempt Resuscitation ASA classification: 3-Severe systemic disease Is this case an emergency?: No
[2024-05-21] MEDS ORDERED: fentaNYL 100 MCG/2 ML VIAL ONE (13:41)
[2024-05-21 14:18] VITALS: O2SAT 98
[2024-05-21 14:29] VITALS: BP 155/83
--- NOTE | 2024-05-21 15:08 | ANESTHESIA POST OP EVALUATION ---
Anesthesia Post Eval - Post Anesthesia Eval Vitals: Last Vital Signs Temp 36.4 C L 05/21/24 14:26 Pulse 73 05/21/24 14:26 Resp 16 05/21/24 14:26 BP 155/83 H 05/21/24 14:26 Pulse Ox 98 05/21/24 14:26 O2 Flow Rate CV Function Including HR & BP: Stable Pain Control: Satisfactory Nausea & Vomiting: Negative Mental Status: Baseline Respiratory Status: Airway Patent Hydration Status: Satisfactory Anesthesia Complications: None
== END 2024-05-21 11:02 | disposition home or self-care (01) ==
LOC: SDS 11:01
PROVIDERS: ATTEND Surgery
PROC: 0DBK8ZZ Excision of Ascending Colon, Via Natural or Artificial Opening Endoscopic (ICD-10-PCS; principal; 2024-05-21 13:00)
DX: K92.1 Melena (principal); D12.2 Benign neoplasm of ascending colon; I10 Essential (primary) hypertension; Z80.0 Family history of malignant neoplasm of digestive organs; G47.30 Sleep apnea, unspecified; E66.9 Obesity, unspecified; Z68.34 Body mass index [BMI] 34.0-34.9, adult; Z87.891 Personal history of nicotine dependence
CPT/HCPCS: 45380; J7120